=== PATIENT | male | born 1955 | race Caucasian/White ===

== ENCOUNTER → 2018-05-07 18:30 | Outpatient (REF) | payer MEDICARE, SELFPAY ==
[2018-05-07 19:14] LABS: Bilirubin Negative (Negative); Blood Large (Negative); Clarity Cloudy; Glucose Negative (Negative); Ketones Negative (Negative); Leukocyte Esterase Small (Negative); Nitrite Positive (Negative); Specific Gravity 1.025 (1.005-1.025); Urobilinogen 0.2 EU/dL (Up TO 0.2); pH 5.5 (5-8)
[2018-05-07 19:33] LABS: Bacteria Moderate HPF (Negative); Casts Negative LPF (Negative); Crystals Negative HPF (Negative); Epithelial Cells Negative HPF (Negative); Mucus Negative (Negative); Other Cells Negative (Negative); RBC >50 (0-2); WBC >50 HPF (0-5)
[2018-05-07 19:34] LABS: C & S Indicated? Yes
== END ==
LOC: NCHCN 18:30
PROVIDERS: PCP Family Medicine; Visit Provider Family Medicine
DX: N39.0 Urinary tract infection, site not specified (principal)
CPT/HCPCS: 87077; 81003; 81015; 87086; 87186

== ENCOUNTER 2018-07-10 10:01 | Emergency (ER) | payer MEDICARE, SELFPAY ==
[2018-07-10 10:02] VITALS: BP 165/79; PULSE 80; RESP 18; TEMP 36.6; O2SAT 95
--- NOTE | 2018-07-10 11:30 | W.ED.GENAD ---
Discharge Plan Disposition Patient Disposition: HOME Condition: Stable Discharge Details Chief Complaint: Cellulitis Clinical Impression: Abrasion of leg with infection, Venous stasis dermatitis, Contact dermatitis Primary Care Provider: Donya Tipton V ED Provider: Preeti Goyal Home Meds and New Rx's Prescriptions: Continue acetaminophen [Tylenol] 325 MG tablet 2 tab PO DAILY PRNRF: 0 aspirin 325 MG tablet 325 mg PO DAILY RF: 0 allopurinol [Zyloprim] 300 MG tablet 1 tab PO DAILY Qty: 90 RF: 4 metformin 500 MG tablet 500 mg PO BID Qty: 180 RF: 3 chlorthalidone 25 MG tablet 1 tab PO DAILY Qty: 90 RF: 4 quinapril 40 MG tablet 1 tab PO DAILY Qty: 90 RF: 4 Metoprolol Succinate 200 MG TAB.ER.24H 200 mg PO DAILY Qty: 90 RF: 3 cephalexin 500 mg capsule 500 mg PO QID Qty: 28 RF: 0 Discharge Instructions Instructions: Abrasion (ED), Dermatitis (ED) Additional Instructions: Apply bacitracin to the left wrist and left leg twice daily. Apply hydrocortisone cream to the left wrist twice daily. Continue the Keflex until finished. Follow-up with your primary care doctor in 1 week for reevaluation. Return to the emergency department with any worsening or new concerning symptoms such as fever, red streaking or any other worsening symptoms. Discharge Data Discharge Date/Time-TO BE ENTERED AT DEPARTURE: 07/10/18 11:54 Discharge Physician: Preeti Goyal Medical Decision Making 62-year-old male with a history of prediabetes, morbid obesity who presents for evaluation of left leg wound after scratched with bleeding vessel last night. Bleeding controlled after 1 hour. No bleeding noted at present. Patient has large lower extremities with chronic venous stasis noted. There is an open wound on the left anterior leg with several excoriated papules around area. The wound overall appears to be healing and I do not see any acute signs of cellulitis, abscess, induration or fluctuance. The left wrist appears consistent with likely a contact dermatitis due to wearing a watch. Patient was instructed to no longer wear this watch. Patient was instructed to finish his Keflex which he is taking for his left leg wound as this appears to be improving his left leg infection. Bacitracin/nonadherent dressing applied to L leg. He is instructed to hold pressure with any further bleeding and to avoid excessive scratching or touching with fingers d/t risk of bleeding or a secondary bacterial infection. Instructed to apply hydrocortisone and bacitracin to the left wrist dermatitis. He states he does not check his sugar regularly. He denies any other acute complaints and does not appear toxic. He is instructed to discuss with his primary care doctor for reevaluation of his prediabetes and whether he should check his sugar as diabetes can affect wound healing. He is instructed to return here immediately if worse with any signs of fever, red streaking or worsening infection. HPI General Mode of arrival: ambulatory. Date/Time Provider Initiated Documentation: 07/10/18 10:22. Limitations to Documentation: no limitations. Information obtained by: patient. HPI Narrative: Patient is a 62-year-old male who presents to the ED with a complaint of evaluation of left leg wound after a bleeding vessel last night which has since resolved as well as a rash of the left wrist. Patient states he has chronic skin changes to his bilateral lower extremities, but scraped his left leg on a tractor 1 month ago and has an open wound which appeared to be more painful and tender recently. He called his primary care doctor's office and they started on the Keflex which she has been taking since Wednesday. He states overall the symptoms are better but last night he scratched the area and there was a bleeding vessel for an hour last night that is since resolved. States he placed pressure on the wound and it stopped. Also states he has had a rash on his left wrist for the past month. Has worn a stainless steel watch there but removed it at the onset of the rash and then placed back on again a few days ago and the rash became worse. Denies any other new lotions, soaps, detergents or any other new meds or new contacts. He denies fever. He states he has been eating and drinking normally. Past medical history: Gout, hypertension, prediabetes Surgical history: Hip replacement, knee surgery, ankle surgery Social history: Smokes tobacco Medications: See list, Keflex Allergies: Sulfamerazine Related Data Home Medications Medication Instructions Recorded Confirmed acetaminophen [Tylenol] 2 tab PO DAILY PRN tab-cap 01/20/13 07/10/18 aspirin 325 mg PO DAILY tab-cap 01/25/13 07/10/18 allopurinol [Zyloprim] 1 tab PO DAILY #90 tab-cap 10/30/17 07/10/18 chlorthalidone 1 tab PO DAILY #90 tab-cap 01/25/18 07/10/18 metformin 500 mg PO BID #180 tab-cap 01/25/18 07/10/18 quinapril 1 tab PO DAILY #90 tab-cap 01/25/18 07/10/18 cephalexin 500 mg capsule 500 mg PO QID #28 cap 07/05/18 07/10/18 Previous Rx's Medication Instructions Recorded allopurinol [Zyloprim] 1 tab PO DAILY #90 tab-cap 10/30/17 chlorthalidone 1 tab PO DAILY #90 tab-cap 01/25/18 metformin 500 mg PO BID #180 tab-cap 01/25/18 quinapril 1 tab PO DAILY #90 tab-cap 01/25/18 cephalexin 500 mg capsule 500 mg PO QID #28 cap 07/05/18 Allergies Allergy/AdvReac Type Severity Reaction Status Date / Time sulfamerazine Allergy Mild SKIN RASH Unverified 07/10/18 10:09 General Stated Complaint: Cellulitis DENNISE: 3 Review of Systems Review of Systems All systems reviewed & are unremarkable except as noted in HPI and below PFSH Family History Mother Essential hypertension Heart disease Father Essential hypertension Heart disease Sister Essential hypertension Hyperlipidemia Brother Neoplasm Grandfather Heart disease Hyperlipidemia Grandfather Diabetes Alcohol abuse Heart disease Grandmother No problems noted. Grandmother Essential hypertension Depression Brother Neoplasm Son No problems noted. Daughter No problems noted. Daughter No problems noted. Daughter No problems noted. Social History Smoking/Tobacco Use Status: Current every day Surgical History Repair of inguinal hernia Replacement of total knee joint (~2006) Total replacement of hip (~2006) Exam Const General: cooperative and healthy appearing Orientation: alert and awake [facility] Head: normal to inspection Ears: hearing grossly normal bilaterally and external ears normal General nose exam: external nose normal Face and sinus: normal facial exam Eyes General: appearance normal, both eyes and all related structures Eyelids: eyelids normal EOM: EOM intact bilaterally Neck Neck: normal visual inspection Resp Effort & Inspection: normal respiratory effort and able to speak in complete sentences Cardio Rate: regular rate Skin Rashes: other (There is a circular ringlike rash around the left wrist which appears excoriated with scaling, erythema and multiple punctate open wounds. No discharge, bleeding, induration or fluctuance) Wounds: wounds noted (Approximately 3 x 3 cm open wound with healing granulation tissue noted to left anterior mid leg. There is chronic venous stasis and purplish discoloration noted to left leg but no signs of acute infection. There are multiple areas of papules and excoriation due to scratching.) Neuro General: alert and awake Cognition: normal cognition Speech: speech normal Gait: normal gait Motor: muscle tone normal throughout Sensory Exam: no sensory deficits noted Extrem General: normal to inspection, full ROM and normal capillary refill Other: Left DP/PT pulses intact. Left radial pulse intact. Cap refill less than 2 seconds. Psych Appearance: grossly normal Mental Status: mental status grossly normal Speech and Movement: speech and movement normal Affect: normal affect Thought Process: normal Course Vital Signs Temperature 97.9 F 07/10/18 10:02 Pulse 80 07/10/18 10:02 Respiratory Rate 18 07/10/18 10:02 Blood Pressure 165/79 H 07/10/18 10:02 Pulse Oximetry 95 07/10/18 10:02 Temperature 97.9 F 07/10/18 10:02 Temperature Source Skin 07/10/18 10:02 Pulse 80 07/10/18 10:02 Respiratory Rate 18 07/10/18 10:02 Respiratory Effort 07/10/18 10:11 Blood Pressure 165/79 H 07/10/18 10:02 Blood Pressure Position Sitting 07/10/18 10:02 Pulse Oximetry 95 07/10/18 10:02 Oxygen Delivery Method Room Air 07/10/18 10:02 Oxygen Flow Rate 0 07/10/18 10:02 Pain Level 3 07/10/18 10:02
[2018-07-10] MEDS: Bacitracin 1 PACKET 5 PACKET (11:41)
[2018-07-10 11:53] VITALS: BP 159/100; PULSE 78; TEMP 36.7; O2SAT 91
== END 2018-07-10 11:54 | disposition home or self-care (01) ==
LOC: ER 12:13
PROVIDERS: Emergency Provider Physician Assistant; PCP Family Medicine
DX: S80.812A Abrasion, left lower leg, initial encounter (principal); W26.8XXA Contact with other sharp object(s), not elsewhere classified, initial encounter; L03.116 Cellulitis of left lower limb; I87.2 Venous insufficiency (chronic) (peripheral); L23.0 Allergic contact dermatitis due to metals; E66.01 Morbid (severe) obesity due to excess calories; Z68.44 Body mass index [BMI] 60.0-69.9, adult; I10 Essential (primary) hypertension; R73.03 Prediabetes
CPT/HCPCS: 99283

== ENCOUNTER 2018-08-16 01:05 | Outpatient (CLI) | payer MEDICARE, SELFPAY ==
--- NOTE | 2018-08-16 09:04 | DI.US_ITS ---
SYMPTOMS/DIAGNOSIS: SWELLING AND BRUISING TO RIGHT LOWER EXTREMITY, PAIN IN RIGHT LEG, M79.604, OTHER SOFT TISSUE DISORDERS, M79.89 DUPLEX VENOUS ULTRASOUND, RIGHT LOWER EXTREMITY: Duplex evaluation of the deep venous system was performed according to the usual protocol. The deep veins are freely compressible throughout to the level of the popliteal veins. There is normal Doppler flow visible throughout and there is excellent flow augmentation with manual calf compression. CONCLUSION: No evidence of deep venous thrombosis.
== END 2018-08-16 01:25 ==
PROVIDERS: PCP Family Medicine; Visit Provider Nurse Practitioner Family
DX: M79.604 Pain in right leg (principal); R22.41 Localized swelling, mass and lump, right lower limb; M79.89 Other specified soft tissue disorders
CPT/HCPCS: 93971

== ENCOUNTER 2018-09-13 10:31 | Outpatient (CLI) | payer MEDICARE, SELFPAY ==
[2018-09-13 13:33] LABS: CREATININE 1.43 mg/dL (0.70-1.30); Estimated GFR 50.28 (mL/min/1.73m2); Potassium 4.3 mmol/L (3.5-5.1)
[2018-09-13 13:47] LABS: Hemoglobin A1C 6.6 % (4.5-6.2)
[2018-09-13 14:19] LABS: COMMENT (LAB VIEW ONLY) 111.06 mg/dL
== END 2018-09-13 10:51 ==
PROVIDERS: PCP Family Medicine; Visit Provider Family Medicine
DX: I10 Essential (primary) hypertension (principal); E11.9 Type 2 diabetes mellitus without complications; E66.01 Morbid (severe) obesity due to excess calories
CPT/HCPCS: 36415; 82043; 82565; 82570; 83036; 84132

== ENCOUNTER 2018-09-29 14:53 | Emergency (ER) | payer MEDICARE, SELFPAY ==
[2018-09-29 15:00] VITALS: BP 197/102; PULSE 80; RESP 24; TEMP 36.2; O2SAT 95
--- NOTE | 2018-09-29 15:37 | W.ED.GENAD ---
Discharge Plan Disposition Patient Disposition: HOME Discharge Details Chief Complaint: Orthopedic Clinical Impression: Acute pain of right hip Primary Care Provider: Gordon Roche ED Provider: Diallo Guaman Home Meds and New Rx's Prescriptions: Continued acetaminophen [Tylenol] 325 MG tablet 2 tab PO DAILY PRNRF: 0 aspirin 325 MG tablet 325 mg PO DAILY RF: 0 allopurinol [Zyloprim] 300 MG tablet 1 tab PO DAILY Qty: 90 RF: 4 metformin 500 MG tablet 500 mg PO BID Qty: 180 RF: 3 chlorthalidone 25 MG tablet 1 tab PO DAILY Qty: 90 RF: 4 quinapril 40 MG tablet 1 tab PO DAILY Qty: 90 RF: 4 Metoprolol Succinate 200 MG TAB.ER.24H 200 mg PO DAILY Qty: 90 RF: 3 Discharge Instructions Instructions: Oxycodone, Rapid Release (By mouth) Additional Instructions: Please contact your primary care physician to arrange follow-up. Please contact [facility] orthopedics or go to [facility] ED tomorrow for additional testing. Return to the ER for any worsening or new concerning symptoms. Medical Decision Making 16:00 -- 62-year-old male with multiple medical problems including remote right hip replacement, here with 10 days of worsening right hip pain, tender to palpation laterally, no overlying skin changes or signs of infection. I spoke with the director of testing unfortunately we do not have any imaging modalities that can accommodate the patient's weight. Cannot obtain plain film x-ray, MRI or CT imaging. 16:40 -- Spoke with patient and regarding transfer to [facility]. He is agreeable. I called [facility] transfer center to request ED to ED transfer. Awaiting return call. 17:22 -- [facility] transfer center called back and noted that [facility] cannot accept patient in transfer because of surge. I advised patient of this and offered to transfer to [facility] and patient refused. He would prefer to go home tonight and will travel to [facility] tomorrow for assessment. Patient to use walker (cannot tolerate crutches) and maintain minimal weight bearing right leg. I encouraged him to RTER for any worsening or new concerning symptoms. Oxycodone 5mg x3 for home use was provided after informed consent. HPI General Mode of arrival: ambulatory. Date/Time Provider Initiated Documentation: 09/29/18 14:57. Limitations to Documentation: no limitations. Information obtained by: patient. HPI Narrative: 75-year-old male with history of COPD, coronary artery disease, diabetes, status post remote bilateral hip replacement as well as bilateral knee replacement, here with right hip pain. Patient notes that he started to have hip pain about 10 days ago. He thought he pulled a muscle but does not recall an injury. Pain is progressed and worsened. Pain is described as a spasm and localized to his lateral right hip and radiates more medially, pain worse with ambulation and with rotation of his hip. Pain is severe. No associated redness or warmth. No fever. Related Data Home Medications Medication Instructions Recorded Confirmed acetaminophen [Tylenol] 2 tab PO DAILY PRN tab-cap 01/20/13 09/29/18 aspirin 325 mg PO DAILY tab-cap 01/25/13 09/29/18 allopurinol [Zyloprim] 1 tab PO DAILY #90 tab-cap 10/30/17 09/29/18 chlorthalidone 1 tab PO DAILY #90 tab-cap 01/25/18 09/29/18 metformin 500 mg PO BID #180 tab-cap 01/25/18 09/29/18 quinapril 1 tab PO DAILY #90 tab-cap 01/25/18 09/29/18 Previous Rx's Medication Instructions Recorded allopurinol [Zyloprim] 1 tab PO DAILY #90 tab-cap 10/30/17 chlorthalidone 1 tab PO DAILY #90 tab-cap 01/25/18 metformin 500 mg PO BID #180 tab-cap 01/25/18 quinapril 1 tab PO DAILY #90 tab-cap 01/25/18 Allergies Allergy/AdvReac Type Severity Reaction Status Date / Time sulfamerazine Allergy Mild SKIN RASH Unverified 09/29/18 15:10 General Stated Complaint: Orthopedic DENNISE: 3 Review of Systems Constitutional Denies fever(s) Musculoskeletal Reports as per HPI Integumentary/Breasts Reports as per HPI PFSH Medical History CAD (coronary artery disease) (Chronic) Diabetes (Chronic) Surgical History Repair of inguinal hernia Replacement of total knee joint (~2006) Total replacement of hip (~2006) Family History Mother Essential hypertension Heart disease Father Essential hypertension Heart disease Sister Essential hypertension Hyperlipidemia Brother Neoplasm Grandfather Heart disease Hyperlipidemia Grandfather Diabetes Alcohol abuse Heart disease Grandmother No problems noted. Grandmother Essential hypertension Depression Brother Neoplasm Son No problems noted. Daughter No problems noted. Daughter No problems noted. Daughter No problems noted. Social History Smoking/Tobacco Use Status: Current every day Exam Const General: cooperative and no acute distress Nutritional Appearance: obese morbidly obese Orientation: alert and awake [facility] Head: atraumatic Mouth: moist mucous membranes Eyes Conjunctivae: normal conjunctivae Sclera: normal sclerae Neck Neck: trachea midline Resp Auscultation: clear to auscultation bilaterally, no rales, no rhonchi and no wheezes Cardio Jugular venous pressure: no JVD Rate: regular rate and not tachycardic Rhythm: regular rhythm GI Palpation: soft, not firm, no guarding, no masses, not rigid and nontender Skin General skin exam: no rashes or lesions noted Neuro General: alert, awake, oriented x3 and tone normal Extrem General: no edema Right lower extremity: hip/thigh Details: tenderness Location: of the hip Location: laterally and abnormal ROM Details: pain with passive ROM during Details: to external rotation; no swelling, no deformity and no unusual warmth Psych Appearance: grossly normal Mental Status: mental status grossly normal Speech and Movement: speech and movement normal Course Vital Signs Temperature 36.2 C L 09/29/18 15:00 Pulse 80 09/29/18 15:00 Respiratory Rate 24 09/29/18 15:00 Blood Pressure 197/102 H 09/29/18 15:00 Pulse Oximetry 95 09/29/18 15:00 Temperature 36.2 C L 09/29/18 15:00 Temperature Source Temporal Artery Scan 09/29/18 15:00 Pulse 80 09/29/18 15:00 Respiratory Rate 24 09/29/18 15:00 Respiratory Effort 09/29/18 15:08 Blood Pressure 197/102 H 09/29/18 15:00 Blood Pressure Position Supine 09/29/18 15:00 Pulse Oximetry 95 09/29/18 15:00 Oxygen Delivery Method Room Air 09/29/18 15:00 Oxygen Flow Rate 0 09/29/18 15:00 Pain Level 3 09/29/18 15:36
[2018-09-29 17:30] VITALS: BP 179/85; PULSE 80; RESP 24
[2018-09-29] MEDS: oxyCODONE 5 MG TAB 15 MG PO (17:30)
== END 2018-09-29 17:34 | disposition home or self-care (01) ==
PROVIDERS: Emergency Provider Student in an Organized Health Care Education/Training Program; PCP Family Medicine
DX: R69 Illness, unspecified (principal)

== ENCOUNTER 2019-03-03 14:25 | Outpatient (CLI) | payer MEDICARE, SELFPAY ==
--- NOTE | 2019-03-03 15:20 | DI.US_ITS ---
SYMPTOMS/DIAGNOSIS: RIGHT LEG PAIN, M79.604, ? DVT RIGHT LOWER EXTREMITY ULTRASOUND: The deep veins of the right lower extremity show normal compression, augmentation and color flow. There is no evidence of a deep venous thrombus. The saphenofemoral junction is intact and unremarkable. There is a 5.2 x 1.8 x 3.3 cm fluid collection in the posterior thigh, most suggestive of a hematoma in this clinical setting. No internal blood flow is seen. IMPRESSION: 1. No evidence of a right lower extremity deep venous thrombus. 2. A 5 x 2 x 3 cm hematoma in the posterior right thigh.
== END 2019-03-03 14:45 ==
PROVIDERS: PCP Family Medicine; Visit Provider Family Medicine
DX: M79.604 Pain in right leg (principal); M79.81 Nontraumatic hematoma of soft tissue
CPT/HCPCS: 93971

== ENCOUNTER 2019-07-26 10:06 | Outpatient (CLI) | payer MEDICARE, SELFPAY ==
[2019-07-26 13:17] LABS: CREATININE 1.36 mg/dL (0.70-1.30); Calculated LDL 133 mg/dL; Cholesterol 222 mg/dL (50-200); HDL Cholesterol 40 mg/dL (40-60); Potassium 4.2 mmol/L (3.5-5.1); Triglyceride 249 mg/dL (30-150)
[2019-07-26 13:34] LABS: Hemoglobin A1C 6.8 % (4.5-6.2)
== END 2019-07-26 10:26 ==
PROVIDERS: PCP Family Medicine; Visit Provider Family Medicine
DX: I10 Essential (primary) hypertension (principal); E11.9 Type 2 diabetes mellitus without complications
CPT/HCPCS: 36415; 80061; 82565; 83036; 84132

== ENCOUNTER 2020-07-31 09:15 | Outpatient (CLI) | payer MEDICARE, SELFPAY ==
[2020-07-31 13:23] LABS: Hemoglobin A1C 8.2 % (<5.7)
[2020-07-31 13:38] LABS: CREATININE 1.21 mg/dL (0.70-1.30); Calculated LDL 105 mg/dL (<100); Cholesterol 190 mg/dL (<200); HDL Cholesterol 38 mg/dL (40-60); Triglyceride 239 mg/dL (<150)
== END 2020-07-31 09:35 ==
PROVIDERS: PCP Family Medicine; Visit Provider Family Medicine
DX: E78.5 Hyperlipidemia, unspecified (principal); R73.9 Hyperglycemia, unspecified; N28.9 Disorder of kidney and ureter, unspecified
CPT/HCPCS: 36415; 80061; 82565; 83036; 84132

== ENCOUNTER 2022-01-15 02:30 | Outpatient (CLI) | payer MEDICARE, SELFPAY ==
[2022-01-15 17:45] LABS: CREATININE 1.2 mg/dL (0.70-1.30); Calculated LDL 114 mg/dL (<100); Cholesterol 195 mg/dL (<200); HDL Cholesterol 43 mg/dL (40-60); Triglyceride 190 mg/dL (<150)
[2022-01-15 20:06] LABS: Microalb ug/mg Crea 888.3 ug/mg Cr
== END 2022-01-15 02:31 | disposition home or self-care (01) ==
LOC: LBO 02:30
PROVIDERS: PCP Family Medicine; Visit Provider Family Medicine
DX: I10 Essential (primary) hypertension (principal); E78.5 Hyperlipidemia, unspecified; E11.9 Type 2 diabetes mellitus without complications
CPT/HCPCS: 36415; 80061; 82043; 82565; 82570; 84132

== ENCOUNTER 2022-07-31 21:17 | Inpatient (IN) | payer MEDICARE, SELFPAY ==
[2022-07-31] VITALS (29 sets, daily range): BP systolic 121–150; BP diastolic 58–84; PULSE 77–93; RESP 12–37; TEMP 36.1–36.8; O2SAT 91–100
--- NOTE | 2022-07-31 21:00 | RT.EKG_ITS ---
APPROVED REPORT Exam: Resting ECG Reason for Exam: chest pain Patient Location: E HR:85 bpm ECG Measurements Heart Rate 85 AXIS CO 286 P 63 QRSd 117 QRS -81 QT 376 T 42 QTc 444 Conclusion Sinus rhythm...normal P axis, V-rate 60- 99 Ventricular premature complex...V complex w/ short R-R interval Prolonged CO interval...CO >220, V-rate 50- 90 Incomplete RBBB and LAFB...axis(240,-40), S>R II III aVF Physician: no stemi, stable, unchanged from prior ekg on 07/23/09
[2022-07-31 21:30] LABS: Abs Immature Grans 0.12 10^3/uL (0.0-0.06); Absolute Basophil Count 0.07 10^3/uL (0.0-0.2); Absolute Eosinophil Count 0.14 10^3/uL (0.0-0.7); Absolute Lymphocyte Count 2.32 10^3/uL (1.2-3.4); Absolute Monocyte Count 0.62 10^3/uL (0.1-0.8); Absolute Neutrophil Count 10.44 10^3/uL (1.2-6.7); Basophils % 0.5; HCT 48.9 % (40.0-50.0); HGB 16.1 g/dL (13.5-17.5); Immature Grans % 0.9; Lymphocytes % 16.9; MCH 29.3 pg (27.0-33.0); MCHC 32.9 % (32.0-36.0); MCV 89 fL (80-95); MPV 10.2 fL (8.0-11.0); Monocytes % 4.5; Neutrophils % 76.2; Platelet Count 197 10^3/uL (130-400); RBC 5.49 10^6/uL (4.36-5.78); RDW 14.2 % (11.8-14.1); RDW-SD 45.8 fL
--- NOTE | 2022-07-31 21:32 | ED.GENADUL_ITS ---
Discharge Plan Disposition Patient Disposition: [facility] INPATIENT Condition: Stable Discharge Details Clinical Impression: Non-ST elevation MN (NSTEMI), Chest pain Primary Care Provider: Gordon Roche ED Provider: Danyel Hoskins Home Meds and New Rx's Prescriptions: No Action allopurinol 300 mg tablet 300 mg PO DAILY Qty: 90 4RF chlorthalidone 25 mg tablet 25 mg PO DAILY Qty: 90 4RF quinapril 40 mg tablet 40 mg PO DAILY Qty: 90 4RF rosuvastatin 10 mg tablet 10 mg PO DAILY Qty: 90 3RF metformin 1,000 mg tablet 1,000 mg PO BID Qty: 180 3RF acetaminophen [Tylenol] 325 MG tablet 2 tab PO DAILY PRN amlodipine 5 mg tablet 5 mg PO DAILY Qty: 90 3RF metoprolol succinate 200 mg tablet extended release 24 hr 200 mg PO DAILY Qty: 90 3RF Medical Decision Making This is a 66-year-old male with a past medical history of a weight of 192 kg with a BMI of 61, kidney disease, hypertension,, diabetes, family history of cardiac disease, who presents today for chest pain. Patient states that he had dinner which was [employer], he had Ink[employer] on it which she has tolerated well before. Dinner was well and uneventful, and then about an hour ago at around 8:00 PM he developed sudden burning sensation in his chest, and transition to a stabbing achy pain. 911 was called, EMS arrived, the patient was given 2 nitroglycerin and he had complete resolution of his chest pain within 2 to 3 minutes. He has remained chest pain-free since then. Currently he denies any chest pain or shortness of breath. He denies any recent exertional dyspnea or chest pain over the last week. He denies history of heart attack. He was a former smoker. He denies tearing or ripping sensation. He denies numbness or tingling. No other complaints at this time. No other modifying factors. Physical exam is reassuring. Pulses are equal throughout. No signs of limb ischemia. Bedside ultrasound shows a notable fat pad from a cardiac bedside limited echo. There does not appear to be any gross wall motion abnormalities however the bedside echo was limited secondary to patient habitus. No evidence of tamponade clinically or on ultrasound. Differential is concerning for cardiac etiology. Esophageal spasm is of a potential with the resolution for the nitro, however cardiac etiology is more concerning. PE and dissection is unlikely given the presentation. We will monitor closely and reassess. The patient has already received 325 aspirin at home, as well as nitro and remains chest pain-free here. EKG shows no evidence of STEMI or acute changes compared to prior. 10:48 PM Patient's laboratory work-up is returned, mildly elevated white count at 13, electrolytes stable, renal function 1.4 creatinine, GFR 55, troponin is elevated at 161, proBNP is 93, lipase normal. Patient remained chest pain-free until just a few moments ago where it returned, Nitropaste was applied symptoms resolved. The troponin came back elevated he was given a 300 mg Plavix load, as well as heparinized. I did reach out to [facility], I spoke with Dr. Mart desai of cardiology, he agreed with the need for cardiac catheterization. No current beds are available. They are weightlifting till tomorrow afternoon but expect a bed at that time. Patient will be admitted at [facility] under Dr. Valle once a bed becomes available. In the meantime we will keep the patient here. I contacted the hospitalist Dr. Cano, she agrees with the assessment and plan. Patient will be admitted until transfer. I have extensively reviewed the treatment plan with the patient. I have addressed all patient concerns at this time. I have also discussed the plan with the admitting physician and they agree with the current assessment and plan and have agreed to assume responsibility for the patient. All parties demonstrate verbal understanding and agreement with our assessment and plan at this time. The documentation in this chart was dictated using [employer] dictation software. Please excuse any dictation errors. FINDINGS: Lungs: Very low lung volumes without definite airspace disease. Pleural spaces: No large pleural effusion. No pneumothorax. Heart/Mediastinum: No significant cardiomegaly for position and projection. Bones/joints: No acute fracture. IMPRESSION: Very low lung volumes without definite airspace disease. Thank you for allowing us to participate in the care of your patient. Dictated and Authenticated by: Danette Hollis MD 07/31/2022 10:41 PM Eastern Time ([place] & [place]) HPI General Date/Time Provider Initiated Documentation: 07/31/22 21:32 . HPI Narrative: This is a 66-year-old male with a past medical history of a weight of 192 kg with a BMI of 61, kidney disease, hypertension,, diabetes, family history of cardiac disease, who presents today for chest pain. Patient states that he had dinner which was [employer], he had [employer] seasoning on it which she has tolerated well before. Dinner was well and uneventful, and then about an hour ago at around 8:00 PM he developed sudden burning sensation in his chest, and transition to a stabbing achy pain. 911 was called, EMS arrived, the patient was given 2 nitroglycerin and he had complete resolution of his chest pain within 2 to 3 minutes. He has remained chest pain-free since then. Currently he denies any chest pain or shortness of breath. He denies any recent exertio nal dyspnea or chest pain over the last week. He denies history of heart attack. He was a former smoker. He denies tearing or ripping sensation. He denies numbness or tingling. No other complaints at this time. No other modifying factors. Related Data Home Medications Medication Instructions Recorded Confirmed acetaminophen 325 mg tablet 2 tab PO DAILY PRN 01/20/13 07/31/22 (Tylenol) metformin 1,000 mg tablet 1,000 mg PO BID #180 tabs 07/30/21 07/31/22 amlodipine 5 mg tablet 5 mg PO DAILY #90 tabs 10/20/21 07/31/22 allopurinol 300 mg tablet 300 mg PO DAILY #90 tab-caps 01/02/22 07/31/22 chlorthalidone 25 mg tablet 25 mg PO DAILY #90 tab-caps 01/02/22 07/31/22 quinapril 40 mg tablet 40 mg PO DAILY #90 tab-caps 01/02/22 07/31/22 rosuvastatin 10 mg tablet 10 mg PO DAILY #90 tabs 01/09/22 07/31/22 metoprolol succinate 200 mg 200 mg PO DAILY #90 tabs 06/18/22 07/31/22 tablet,extended release 24 hr Previous Rx's Medication Instructions Recorded metformin 1,000 mg tablet 1,000 mg PO BID #180 tabs 07/30/21 amlodipine 5 mg tablet 5 mg PO DAILY #90 tabs 10/20/21 allopurinol 300 mg tablet 300 mg PO DAILY #90 tab-caps 01/02/22 chlorthalidone 25 mg tablet 25 mg PO DAILY #90 tab-caps 01/02/22 quinapril 40 mg tablet 40 mg PO DAILY #90 tab-caps 01/02/22 rosuvastatin 10 mg tablet 10 mg PO DAILY #90 tabs 01/09/22 metoprolol succinate 200 mg 200 mg PO DAILY #90 tabs 06/18/22 tablet,extended release 24 hr Allergies Allergy/AdvReac Type Severity Reaction Status Date / Time sulfamerazine Allergy Mild SKIN RASH Verified 07/31/22 21:23 General Stated Complaint: Chest Pain DENNISE: 2 Review of Systems All systems reviewed & are unremarkable except as noted in HPI and below PFSH All Active Problems (Updated 07/31/22 @ 22:55 by Danyel Hoskins DO) Chest pain (Acute) Non-ST elevation MN (NSTEMI) (Acute) Left leg cellulitis (Acute) Leukocytosis (Acute) Status post hip replacement (Acute) Status post inguinal hernia repair (Acute) Status post total bilateral knee replacement (Acute) Cellulitis (Acute) large area of blood strong nidus for infection Pain (Acute) rt leg clinically c/w muscle tear and resultant hematoma Diabetes mellitus (Chronic) Moderately increased albuminuria (Acute) Hypertension (Chronic) Varicose veins of lower extremity (Acute) Venous insuffiency Smoker (Acute) chews Osteoarthritis (Acute) THR 11/03; knee pain; bilateral TKR's 2008 Obstructive sleep apnea syndrome (Acute) w/hypoxia and use of CPAP mask Morbid obesity (Acute 01/25/13) BMI 64 Kidney disease (Acute) renal insufficiency; 06/2009 w/renal consult at [facility] [place] with yearly F/U Heart failure (Acute) Gout (Acute) Essential hypertension (Acute 07/25/13) Abnormal ECG (Acute) W/PVC'S, LEFT ANTERIOR HEMIBLOCK, 1st DEGREE AV BLOCK Medical History CAD (coronary artery disease) Diabetes Surgical History Repair of inguinal hernia RIGHT Replacement of total knee joint (~2006) B/L S/P revision of total hip (~10/2018) 11/21/18 (R) [facility] [place] Total replacement of hip (~2006) RIGHT Family History Mother , 59 Essential hypertension Heart disease Depression Father Essential hypertension Heart disease Sister Essential hypertension Hyperlipidemia Brother , 50 Brain cancer Maternal Grandfather Heart disease Hyperlipidemia Paternal Grandfather Diabetes Alcohol abuse Heart disease Maternal Grandmother No problems noted. Paternal Grandmother Essential hypertension Depression Brother , 45 Brain cancer Son No problems noted. Daughter No problems noted. Daughter No problems noted. Daughter No problems noted. Sister , 9 months No problems noted. Social History Smoking/Tobacco Use Status: Current every day Tobacco Type: smokeless tobacco Tobacco: How many years used: 48 Smokeless tobacco user: chewing tobacco Quit status: not considering quitting Second Hand Exposure: Yes Smoking risk assessment performed?: Yes Alcohol Intake: current Alcohol Intake frequency: a few times a month Alcohol type: beer Drug use: Never Substance use type: does not use Caregiver/Support person: No Household members: spouse Housing: house Communication Needs: None Do you need help understanding health information?: Rarely Pets and animals: No Sexually active: Yes Do you think of yourself as: straight/heterosexual What is your relationship status?: How often do you talk on the phone with friends or family?: three or more times per week How often do you get together with friends or relatives?: twice per week How often do you attend oriental orthodox or moravian services?: 1-3 times per year Do you belong to any clubs or organized social groups?: yes Panel score (0-1 are the most socially isolated patients): 3 What type of physical activity do you participate in: decline to answer Duration: 15-30 minutes/day Frequency: 1-2 times per week Anita/Taoist: Lutheran Special anita needs: No Seatbelt use: never Helmet use: No Drive intox or ride w/intox intermodal truck driver: No Do you feel safe in your relationship?: Yes Exam Narrative Exam Narrative: 1.Const: Well-nourished, Well-developed, appearing stated age 2.Eyes: PERRL, no conjunctival injection, and symmetrical lids. 3.ENT: Atraumatic external nose and ears. Moist MM. Neck: Symmetric, trachea midline, No thyromegaly. 4.CVS: +S1/S2, No murmurs or gallops. Peripheral pulses 2+ and equal in all extremities. Brisk capillary refill in all extremities. 5.RESP: Unlabored respiratory effort. Clear to auscultation bilaterally. No wheezes rales or rhonchi 6.GI: Soft, Nontender/Nondistended, No hepatosplenomegaly. No guarding or rebound. 7.MSK: Normocephalic/Atraumatic, Extremities w/o deformity or ttp No cyanosis or clubbing, Normal movement of all extremities 8.Skin: Warm, Dry. No rashes or lesions. 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 Sensation grossly intact, no focal neurologic deficits. 10.Psych: (AAO) x3. Appropriate mood and affect Course Vital Signs Vital signs: Vital Signs Temperature 36.1 C L 07/31/22 21:17 Pulse 86 07/31/22 21:17 Respiratory Rate 16 07/31/22 21:17 Pulse Oximetry 94 07/31/22 21:17 Temperature 36.1 C L 07/31/22 21:17 Temperature Source Skin 07/31/22 21:17 Pulse 86 07/31/22 21:17 Respiratory Rate 16 07/31/22 21:17 Respiratory Effort 07/31/22 21:17 Blood Pressure Position Sitting 07/31/22 21:17 Pulse Oximetry 94 07/31/22 21:17 Oxygen Delivery Method Room Air 07/31/22 21:17 Oxygen Flow Rate 0 07/31/22 21:17 Pain Level 0 07/31/22 21:17 Lab/Test Results Lab/Test Results: Laboratory Tests Range/Units 07/31/22 21:25 WBC (4.4-10.8) 10^3/uL 13.70 H RBC (4.36-5.78) 10^6/uL 5.49 Hgb (13.5-17.5) g/dL 16.1 Hct (40.0-50.0) % 48.9 MCV (80-95) fL 89 MCH (27.0-33.0) pg 29.3 MCHC (32.0-36.0) % 32.9 RDW (11.8-14.1) % 14.2 H Plt Count (130-400) 10^3/uL 197 MPV (8.0-11.0) fL 10.2 Immature Gran % 0.9 Neutrophils % 76.2 Lymphocytes % 16.9 Monocytes % 4.5 Eosinophils % 1.0 Basophils % 0.5 Nucleated RBC % (0.0-0.3) % 0.0 Absolute Neutrophils (1.2-6.7) 10^3/uL 10.44 H Absolute Lymphocytes (1.2-3.4) 10^3/uL 2.32 Absolute Monocytes (0.1-0.8) 10^3/uL 0.62 Absolute Eosinophils (0.0-0.7) 10^3/uL 0.14 Absolute Basophils (0.0-0.2) 10^3/uL 0.07 Critical Care Time Critical Care Time Critical Care Time: Yes Total Critical Care Time: 45 Attestation: Upon my evaluation, this patient had a high probability of imminent or life- threatening deterioration, which required my direct attention, intervention, and personal management. I have personally provided 45 minutes of critical care time exclusive of time spent on separately billable procedures. Time includes review of laboratory data, radiology results, discussion with consultants, and monitoring for potential decompensation. Interventions were performed as documented. POCUS Exam (ED) Limited Cardiac Exam DATE OF EXAM: 07/31/22 TIME OF EXAM: 21:54 PROVIDER THAT PERFORMED THE STUDY: Danyel Hoskins IS THIS A REPEAT EXAM DURING THIS ENCOUNTER: no REASON FOR EXAM: Chest pain VISUALIZED STRUCTURES: Left atrium, Left ventricle, Right ventricle and Interventricular septum VIEW OBTAINED: Parasternal long-axis PERTINENT FINDINGS/IMPRESSION: Other (Large fat pad is noted. No tamponade. No gross evidence of wall motion abnormality.) Exam complete
[2022-07-31 21:44] LABS: INR 1.1 (0.9-1.1); PTT Activated 26.1 sec (21.0-27.5); Prothrombin Time 10.7 sec (9.3-11.0)
--- NOTE | 2022-07-31 21:45 | DI.RAD_ITS ---
Exam(s) XR PORTABLE CHEST AP EXAM: XR PORTABLE CHEST AP CLINICAL HISTORY: central chest pain. TECHNIQUE: 2D digital imaging was performed. COMPARISON: CR LEFT HIP COMPLETE from 06/17/2011 FINDINGS: Single AP portable view. Heart size is upper normal. The mediastinum is not widened. Lungs are clear. No infiltrates nor obvious pleural effusions. IMPRESSION: No acute pulmonary findings on this single AP portable view of the chest. DATA REPOSITORY: RADIATION DOSE DELIVERED:
[2022-07-31 21:54] LABS: ALT 29 U/L (16-63); AST 18 U/L (15-37); Albumin 3.5 g/dL (3.4-5.0); Alkaline Phosphatase 124 U/L (46-116); Anion Gap 7.5 mmol/L (3-11); BUN 22 mg/dL (7-18); Bilirubin, Total 0.5 mg/dL (0.2-1.0); CO2 30.5 mmol/L (21.0-32.0); CREATININE 1.4 mg/dL (0.70-1.30); Chloride 101 mmol/L (98-107); Estimated GFR 55.78 (mL/min/1.73m2); Glucose 269 mg/dL (74-106); Lipase 89 U/L (73-393); NT-proBNP 93 pg/mL (<300); Potassium 3.8 mmol/L (3.5-5.1); Sodium 139 mmol/L (136-145); Total Protein 7.6 g/dL (6.4-8.2)
[2022-07-31 21:57] LABS: Troponin I 161 ng/L (<or=60)
--- NOTE | 2022-07-31 22:42 | DI.VRAD_ITS ---
PROCEDURE INFORMATION: Exam: XR Chest Exam date and time: 07/31/2022 21:39 Age: 66 years old Clinical indication: Pain; Other: Central cp TECHNIQUE: Imaging protocol: Radiologic exam of the chest. Views: 1 view. COMPARISON: No relevant prior studies available. FINDINGS: Lungs: Very low lung volumes without definite airspace disease. Pleural spaces: No large pleural effusion. No pneumothorax. Heart/Mediastinum: No significant cardiomegaly for position and projection. Bones/joints: No acute fracture. IMPRESSION: Very low lung volumes without definite airspace disease. Dictated and Authenticated by: Danette Hollis MD. Ordering:ALEXANDRE Montaño MD
[2022-07-31] MEDS: Clopidogrel 300 MG TAB PO (22:49)
[2022-07-31 22:55] LABS: Lab Add On Test DONE
--- NOTE | 2022-07-31 22:56 | W.PM.HP.N ---
Date of service: 07/31/22 Time of Service: 22:56 Assessment and Plan Assessment and plan (1) Non-ST elevation [place] (NSTEMI): Status: Acute Assessment and plan: Admit to ICU in anticipation of need for a nitroglycerin drip. NPO. Trend serial troponins. Repeat EKG in am. Treat with aspirin, plavix, heparin gtt. Increase the dose of statin. Check A1C, fasting lipid panel. Echo unavailable at our facility over the weekend. Anticipate transfer to [facility] tomorrow for a cardiac cath. (2) Leukocytosis: Status: Acute Assessment and plan: CXR w/o an infiltrate. Check procalcitonin. (3) Diabetes mellitus: Status: Chronic Assessment and plan: Hold metformin in anticipation of IV contrast dye use. Cover with SSI. (4) Hypertension: Status: Chronic Assessment and plan: Continue home antihypertensive regimen (5) Obstructive sleep apnea syndrome: Status: Chronic Assessment and plan: On BIPAP at home. Continue here. (6) Tobacco abuse: Status: Acute Assessment and plan: The patient uses snuff. Encouraged to quit. Provide nicotine replacement. (7) DVT prophylaxis: Status: Acute Assessment and plan: On therapeutic heparin gtt (8) Discharge planning issues: Status: Acute Assessment and plan: Full code Admit to ICU. Anticipate transfer to [facility] tomorrow. Accepted in transfer by Dr Shahid. History of Present Illness History of Present Illness Chief Complaint: chest pain Narrative: Mr Purcell is a 66 year old male with PMHx of NIDDM2, HTN, Hyperlipidemia, ANJELICA, on BiPAP, obesity with BMI of 61 kg/m2, who presented to [facility] ED today c/o chest pain that started suddenly after dinner and is described as L-sided, burning/stingling, then stabbing and achy and heavy. The chest pain was accompanied by lightheadedness, shortness of breath, and nausea. The chest pain did not radiate. The patient took a full dose aspirin at home. Two nitroglycerin were given by EMS with resolution of symptoms. His ER workup revealed a positive troponin I (161) without ischemic changes on the EKG. He also has a leucocytosis of 13.70 without a clear source. Chest pain did recur in the ED. The patient's case was discussed with [facility] cardiology who accept the patient in transfer with bed availability expected tomorrow afternoon with plans for a cardiac cath tomorrow. The patient had already taken aspirin at home; he was loaded with plavix and started on heparin gtt. Hospitalist admission was requested while awaiting a bed at [facility]. He is full code. Review of Systems All systems reviewed & are unremarkable except as noted in HPI and below PFSH All Active Problems (Updated 08/01/22 @ 01:07 by Charity Cano MD) Tobacco abuse (Acute) Discharge planning issues (Acute) DVT prophylaxis (Acute) Chest pain (Acute) Non-ST elevation [place] (NSTEMI) (Acute) Left leg cellulitis (Acute) Leukocytosis (Acute) Status post hip replacement (Acute) Status post inguinal hernia repair (Acute) Status post total bilateral knee replacement (Acute) Cellulitis (Acute) large area of blood strong nidus for infection Pain (Acute) rt leg clinically c/w muscle tear and resultant hematoma Diabetes mellitus (Chronic) Moderately increased albuminuria (Acute) Hypertension (Chronic) Varicose veins of lower extremity (Acute) Venous insuffiency Smoker (Acute) chews Osteoarthritis (Acute) THR 11/03; knee pain; bilateral TKR's 2008 Obstructive sleep apnea syndrome (Chronic) w/hypoxia and use of CPAP mask Morbid obesity (Acute 01/25/13) BMI 64 Kidney disease (Acute) renal insufficiency; 06/2009 w/renal consult at [facility] with yearly F/U Heart failure (Acute) Gout (Acute) Essential hypertension (Acute 07/25/13) Abnormal ECG (Acute) W/PVC'S, LEFT ANTERIOR HEMIBLOCK, 1st DEGREE AV BLOCK Medical History CAD (coronary artery disease) Diabetes Surgical History Repair of inguinal hernia RIGHT Replacement of total knee joint (~2006) B/L S/P revision of total hip (~10/2018) 11/21/18 (R) [facility] Total replacement of hip (~2006) RIGHT Family History Mother , 59 Essential hypertension Heart disease Depression Father Essential hypertension Heart disease Sister Essential hypertension Hyperlipidemia Brother , 50 Brain cancer Maternal Grandfather Heart disease Hyperlipidemia Paternal Grandfather Diabetes Alcohol abuse Heart disease Maternal Grandmother No problems noted. Paternal Grandmother Essential hypertension Depression Brother , 45 Brain cancer Son No problems noted. Daughter No problems noted. Daughter No problems noted. Daughter No problems noted. Sister , 9 months No problems noted. Social History Smoking/Tobacco Use Status: Current every day Tobacco Type: smokeless tobacco Tobacco: How many years used: 48 Smokeless tobacco user: chewing tobacco Quit status: not considering quitting Second Hand Exposure: Yes Smoking risk assessment performed?: Yes Alcohol Intake: current Alcohol Intake frequency: a few times a month Alcohol type: beer Drug use: Never Substance use type: does not use Caregiver/Support person: No Household members: spouse Housing: house Communication Needs: None Do you need help understanding health information?: Rarely Pets and animals: No Sexually active: Yes Do you think of yourself as: straight/heterosexual What is your relationship status?: How often do you talk on the phone with friends or family?: three or more times per week How often do you get together with friends or relatives?: twice per week How often do you attend catholic or presybeterian services?: 1-3 times per year Do you belong to any clubs or organized social groups?: yes Panel score (0-1 are the most socially isolated patients): 3 What type of physical activity do you participate in: decline to answer Duration: 15-30 minutes/day Frequency: 1-2 times per week Anita/Gnosticist: Yarsani Special anita needs: No Seatbelt use: never Helmet use: No Drive intox or ride w/intox driver starting gate: No Do you feel safe in your relationship?: Yes Meds Allergies and Home Medications Allergies Allergy/AdvReac Type Severity Reaction Status Date / Time sulfamerazine Allergy Mild SKIN RASH Verified 07/31/22 21:23 Home Medications Medication Instructions Recorded Confirmed Type acetaminophen 325 mg tablet 2 tab PO DAILY PRN 01/20/13 07/31/22 History (Tylenol) metformin 1,000 mg tablet 1,000 mg PO BID #180 tabs 07/30/21 07/31/22 Rx amlodipine 5 mg tablet 5 mg PO DAILY #90 tabs 10/20/21 07/31/22 Rx allopurinol 300 mg tablet 300 mg PO DAILY #90 tab-caps 01/02/22 07/31/22 Rx chlorthalidone 25 mg tablet 25 mg PO DAILY #90 tab-caps 01/02/22 07/31/22 Rx quinapril 40 mg tablet 40 mg PO DAILY #90 tab-caps 01/02/22 07/31/22 Rx rosuvastatin 10 mg tablet 10 mg PO DAILY #90 tabs 01/09/22 07/31/22 Rx metoprolol succinate 200 mg 200 mg PO DAILY #90 tabs 06/18/22 07/31/22 Rx tablet,extended release 24 hr Exam Narrative Exam Narrative: General: Very pleasant obese male who is A&Ox3, sitting up comfortably at the edge of the bed, NAD, on room air, appears comfortable Neurological: A&Ox3, no focal deficits Psychiatric: Appropriate speech pattern/content Skin: Visible skin intact; chronic venous stasis changes LLE HEENT: Atraumatic, normocephalic, EOMI, MMM, clear oropharynx, large neck diameter, no submandibular or cervical lymphadenopathy, thyroid size difficult to assess, no obvious JVD Cardiovascular: RRR, no m/r/g Lungs: CTAB Gastrointestinal: soft, nontender, nondistended Genitourinary: deferred Extremities: 1+ BLE edema, trace pedal pulses, no c/c. No lesions on B feet. Results Imaging Additional studies: CXR: Very low lung volumes without definite airspace disease. EKG: SR, 1st degree heart block, incomplete RBBB and LAFB, no acute ischemia, Labs Result diagrams: 07/31/22 21:25 07/31/22 21:25 Labs: Laboratory Results - last 24 hr 07/31/22 07/31/22 07/31/22 21:25 21:25 21:25 WBC 13.70 H RBC 5.49 Hgb 16.1 Hct 48.9 MCV 89 MCH 29.3 MCHC 32.9 RDW 14.2 H Plt Count 197 MPV 10.2 Immature Gran % 0.9 Neutrophils % 76.2 Lymphocytes % 16.9 Monocytes % 4.5 Eosinophils % 1.0 Basophils % 0.5 Nucleated RBC % 0.0 Absolute Neutrophils 10.44 H Absolute Lymphocytes 2.32 Absolute Monocytes 0.62 Absolute Eosinophils 0.14 Absolute Basophils 0.07 PT 10.7 INR 1.1 APTT 26.1 Sodium 139 Potassium 3.8 Chloride 101 Carbon Dioxide 30.5 Anion Gap 7.5 BUN 22 H Creatinine 1.4 H Est GFR (CKD-EPI 2020) 55.78 Glucose 269 H Calcium 10.0 Total Bilirubin 0.5 AST 18 ALT 29 Alkaline Phosphatase 124 H Troponin I 161 H* NT-Pro-B Natriuret Pep 93 Total Protein 7.6 Albumin 3.5 Lipase 89 Add-On Test Request 07/31/22 21:25 WBC RBC Hgb Hct MCV MCH MCHC RDW Plt Count MPV Immature Gran % Neutrophils % Lymphocytes % Monocytes % Eosinophils % Basophils % Nucleated RBC % Absolute Neutrophils Absolute Lymphocytes Absolute Monocytes Absolute Eosinophils Absolute Basophils PT INR APTT Sodium Potassium Chloride Carbon Dioxide Anion Gap BUN Creatinine Est GFR (CKD-EPI 2020) Glucose Calcium Total Bilirubin AST ALT Alkaline Phosphatase Troponin I NT-Pro-B Natriuret Pep Total Protein Albumin Lipase Add-On Test Request DONE Last Vital Signs Temp 36.1 C L 07/31/22 21:17 Pulse 81 07/31/22 21:47 Resp 20 07/31/22 21:50 BP 135/68 07/31/22 21:47 Pulse Ox 94 07/31/22 21:50
[2022-07-31 23:00] LABS: Source Nasal/Nares
[2022-07-31 23:23] LABS: Procalcitonin 0.1 ng/mL
[2022-07-31 23:30] LABS: COVID-19 PCR Negative (Negative)
[2022-08-01] VITALS (93 sets, daily range): BP systolic 86–154; BP diastolic 45–103; PULSE 64–115; RESP 11–48; TEMP 36.7–36.8; O2SAT 90–98
[2022-08-01 01:03] LABS: Troponin I 2078 ng/L (<or=60)
--- NOTE | 2022-08-01 01:06 | RT.EKG_ITS ---
APPROVED REPORT Exam: Resting ECG Reason for Exam: chest pain Patient Location: I HR:74 bpm ECG Measurements Heart Rate 74 AXIS IA 301 P 66 QRSd 111 QRS -90 QT 395 T 28 QTc 439 Conclusion Age not entered, assumed to be 51 years old for purpose of ECG interpretation Sinus rhythm...normal P axis, V-rate 50- 99 Atrial premature complex...SV complex w/ short R-R interval Prolonged IA interval...IA >210, V-rate 50- 90 LAD, consider left anterior fascicular block...axis(240,-40), S>R II III aVF Low voltage, precordial leads...precordial leads <1.0mV Consider anterior infarct...Q >30mS in V2-V5
[2022-08-01] MEDS: Metoprolol 50 MG TAB PO ×3 (04:06→16:21)
[2022-08-01] MEDS: nitroGLYcerin 0.4 MG TAB SL ×2 (04:36→04:42)
--- NOTE | 2022-08-01 05:54 | NUR.NOTE ---
0410-pt rang to state he needed to void. got oob to commode and then back to bed upon which he said that he had chest pain. Dr. Cano called and notified and asked for a sl ntg ordered which was received. EKG done. #1 NTG given sl at 0436 with some relief. BP afterwards was 137/62. HR of 75. a second NTG was given at 0442 with relief. BP was 113/61 afterwards with a HR of 76. pt laid back down, put on his cpap and went back to sleep after medical laboratory specialist bell his blood
[2022-08-01 06:07] LABS: Abs Immature Grans 0.09 10^3/uL (0.0-0.06); Absolute Basophil Count 0.07 10^3/uL (0.0-0.2); Absolute Eosinophil Count 0.22 10^3/uL (0.0-0.7); Absolute Lymphocyte Count 2.77 10^3/uL (1.2-3.4); Absolute Monocyte Count 0.67 10^3/uL (0.1-0.8); Absolute Neutrophil Count 8.22 10^3/uL (1.2-6.7); Basophils % 0.6; Eosinophils % 1.8; HCT 46.8 % (40.0-50.0); HGB 15.4 g/dL (13.5-17.5); Immature Grans % 0.7; MCH 29.2 pg (27.0-33.0); MCHC 32.9 % (32.0-36.0); MCV 89 fL (80-95); MPV 10.5 fL (8.0-11.0); Monocytes % 5.6; Neutrophils % 68.3; Platelet Count 187 10^3/uL (130-400); RBC 5.27 10^6/uL (4.36-5.78); RDW 14.5 % (11.8-14.1); RDW-SD 46.8 fL; WBC 12.04 10^3/uL (4.4-10.8)
[2022-08-01 06:24] LABS: PTT Activated 28.3 sec (21.0-27.5)
[2022-08-01 06:36] LABS: Anion Gap 10.7 mmol/L (3-11); BUN 23 mg/dL (7-18); CO2 26.3 mmol/L (21.0-32.0); CREATININE 1.1 mg/dL (0.70-1.30); Calcium 9.2 mg/dL (8.5-10.1); Calculated LDL 55 mg/dL (<100); Chloride 102 mmol/L (98-107); Cholesterol 153 mg/dL (<200); Glucose 195 mg/dL (74-106); HDL Cholesterol 37 mg/dL (40-60); Magnesium 1.3 mg/dL (1.8-2.4); Potassium 3.5 mmol/L (3.5-5.1); Sodium 139 mmol/L (136-145); Triglyceride 309 mg/dL (<150)
[2022-08-01 06:41] LABS: Troponin I 4469 ng/L (<or=60)
[2022-08-01] MEDS: Insulin Aspart 300 UNITS/3 ML PEN SC (06:58)
--- NOTE | 2022-08-01 07:00 | RT.EKG_ITS ---
APPROVED REPORT Exam: Resting ECG Reason for Exam: NSTEMI Patient Location: I HR:72 bpm ECG Measurements Heart Rate 72 AXIS IL 253 P 156 QRSd 110 QRS -90 QT 390 T 11 QTc 427 Conclusion Sinus or ectopic atrial rhythm...P axis (-45,135) Atrial premature complex...SV complex w/ short R-R interval Prolonged IL interval...IL >220, V-rate 50- 90 Inferior infarct, old...Q >35mS, II III aVF Anterior infarct, old...Q >40mS, abnormal ST-T, V2-V5
[2022-08-01] MEDS: Allopurinol 300 MG TAB PO (08:13)
[2022-08-01] MEDS: amLODIPine 5 MG TAB PO (08:13)
[2022-08-01] MEDS: Clopidogrel 75 MG TAB PO (08:13)
[2022-08-01] MEDS: Aspirin E.C. 81 MG TABEC PO (08:13)
[2022-08-01] MEDS: Pantoprazole 40 MG VIAL IVP (08:13)
[2022-08-01] MEDS: Magnesium Oxide 400 MG TAB PO ×3 (08:43→16:21)
[2022-08-01] MEDS: MAGNESIUM SULFATE 4 GM/100 ML BAG IVPB (08:43)
--- NOTE | 2022-08-01 10:16 | INITIAL_ITS ---
- If Service Date Differs Date of service: 08/01/22 Time of Service: 10:17 Care Management Initial Assess REASON FOR HOSPITALIZATION:: NSTEMI PAST MEDICAL HISTORY/PAST SURGICAL HISTORY:: All Active Problems. Tobacco abuse (Acute). Discharge planning issues (Acute). DVT prophylaxis (Acute). Chest pain (Acute). Non-ST elevation [place] (NSTEMI) (Acute). Left leg cellulitis (Acute). Leukocytosis (Acute). Status post hip replacement (Acute). Status post inguinal hernia repair (Acute). Status post total bilateral knee replacement (Acute). Cellulitis (Acute). large area of blood strong nidus for infection. Pain (Acute). rt leg clinically c/w muscle tear and resultant hematoma. Diabetes mellitus (Chronic). Moderately increased albuminuria (Acute). Hypertension (Chronic). Varicose veins of lower extremity (Acute). Venous insuffiency. Smoker (Acute). chews. Osteoarthritis (Acute). THR 11/03; knee pain; bilateral TKR's 2008. Obstructive sleep apnea syndrome (Chronic). w/hypoxia and use of CPAP mask. Morbid obesity (Acute 01/25/13). BMI 64. Kidney disease (Acute). renal insufficiency; 06/2009 w/renal consult at [facility] with yearly F/U. Heart failure (Acute). Gout (Acute). Essential hypertension (Acute 07/25/13). Abnormal ECG (Acute). W/PVC'S, LEFT ANTERIOR HEMIBLOCK, 1st DEGREE AV BLOCK. Medical History. CAD (coronary artery disease). Diabetes. Surgical History. Repair of inguinal hernia. RIGHT. Replacement of total knee joint (~2006). B/L. S/P revision of total hip (~10/2018). 11/21/18 (R) [facility]. Total replacement of hip (~2006). RIGHT PREVIOUS FUNCTIONAL STATUS/SOCIAL/FAMILY SUPPORTS:: Abdi lives in [place] with his , Chloé. They have four children, all who live nearby and are very supportive. He is a proud grandfather of many, and enjoys watching them play local sports. He has worked as a castro and a selectman for many years. He is independent at baseline in the community. CURRENT FUNCTIONAL STATUS:: Sukhi was sitting up on the edge of the bed visiting with his , Chloé, when CM met with them. Their daughter, Bianca, was also visiting. Bianca asked about the time frame of his pending transfer to [facility]. Per RN, he has been accepted, but [facility] is waiting for a bed to become available prior to him transferring. Sukhi and his family expressed concern about waiting, and CM explained that he is being closely monitored in the ICU, and that [facility] will set the time for transfer, as they are the accepting facility. Sukhi stated that he is receiving good care, and is looking forward to transfer. He is currently NPO, reported being hungry, and asked for Jello. CM advised that diet orders must come from the MD, and he is NPO pending transfer and potential surgery. CM will continue to follow. ADVANCE DIRECTIVES:: [facility] on file, his Chloé is listed as agent. Has patient been provided with info about the portal/API?: Yes Did the patient sign up for the portal?: No CODE STATUS:: Full Code INSURANCE COVERAGE / FINANCIAL ISSUES:: MCR CURRENT HOME/COMMUNITY SERVICES/EQUIPMENT:: No known services or equipment. PRIMARY CARE PHYSICIAN:: Gordon Roche POTENTIAL DISCHARGE NEEDS:: transfer to [facility] PATIENT/FAMILY EDUCATION NEEDS:: Review discharge instructions and expectations for transfer with pt and family, discussion of self care needs including ask me three and goals of care. ANTICIPATED BARRIERS TO DISCHARGE:: None identified. TRANSPORTATION:: Anticipate acute transfer, will tranpsort via EMS PLAN:: Anticipate Abdi will transfer to [facility], per report, he has been accepted pending bed availability. He will transport via EMS, coordianted by RN Traffic Maintenance Officer. He will follow up with his PCP and discharge plan of care. CM will continue to support discharge planning considerations.
--- NOTE | 2022-08-01 10:35 | W.PM.PROGNOT ---
Date of Service Date of service: 08/01/22 Time of Service: 10:35 Assessment and Plan Assessment and plan (1) Non-ST elevation [place] (NSTEMI): Status: Acute Assessment and plan: Continue beta-blockers aspirin and DAPT along with rosuvastatin. If further chest pain we will start nitroglycerin drip. Anticipate transfer later today to [facility] to the service of Dr. Shahid Critical care time spent interviewing and examining the patient, reviewing studies, discussing case with patient's nurse and consulting physicians was 30 minutes (2) Diabetes mellitus: Status: Chronic Assessment and plan: Hold metformin in anticipation of IV contrast dye use. Cover with SSI. (3) Hypertension: Status: Chronic Assessment and plan: Continue home antihypertensive regimen (4) Obstructive sleep apnea syndrome: Status: Chronic Assessment and plan: On BIPAP at home. Continue here. (5) Tobacco abuse: Status: Acute Assessment and plan: The patient uses snuff. Encouraged to quit. Provide nicotine replacement. (6) Hypomagnesemia: Status: Acute Assessment and plan: Patient receiving parenteral and oral replacement. Monitor levels (7) DVT prophylaxis: Status: Acute Assessment and plan: On therapeutic heparin gtt (8) Discharge planning issues: Status: Acute Assessment and plan: Full code Admit to ICU. Anticipate transfer [place] [facility] [place]. Accepted in transfer by Dr Shahid. Subjective Subjective Interval history since last seen: 66-year-old male with history of hypertension, diabetes mellitus type 2 not on insulin, hyperlipidemia, ANJELICA treated with BiPAP, new onset resting chest pain associate with nausea diaphoresis shortness of breath. Patient was found to have an NSTEMI with a EKG showing new evidence of anterior and inferior infarct with loss of R waves in the anterior precordial leads as well as inferior Q waves that are new. There is no ST elevation. Troponin level Initially was 161 last night climbed to 2078 this morning is now 4469. Dr. Hoskins from [facility] emergency department spoke with [facility] television production clerk Dr. Cevallos who agreed that the patient needed cardiac catheterization. No beds were available last night but agreed to take the patient the following day which is today. Patient will be admitted under the service of Dr. Valle once a bed becomes available. During the night patient had some further chest pain which was alleviated with sublingual nitroglycerin. The night hospitalist ordered nitroglycerin paste although this was not applied. Presently patient denies any chest tightness or heaviness and does denies any dyspnea. Magnesium level is low this morning at 1.3 which is currently being corrected. proBNP was normal last night. Patient is currently on beta-blockers including Lopressor 50 mg every 6 hours along with aspirin and Plavix and is currently on a heparin drip. Patient's rosuvastatin was increased from 10 mg daily to 40 mg. Patient remains hemodynamically stable and is awaiting transfer. Explained to patient if he has any further chest pain or pressure tightness to let me know and we will start nitroglycerin drip and recheck an EKG. We will continue to cycle his troponins until they plateau. Exam Narrative Exam Narrative: Morbidly obese gentleman in no acute distress sitting up to bedside talking with his daughter. Neck veins are difficult to discern due to his obesity Lungs are clear to auscultation Heart is regular rate and rhythm no appreciable murmur rub or gallop Abdomen is obese soft and nontender Legs are large and edematous with venous varicosities Objective Last Vital Signs Temp 36.8 C 08/01/22 09:17 Pulse 79 08/01/22 09:17 Resp 19 08/01/22 09:17 BP 120/61 08/01/22 09:17 Pulse Ox 94 08/01/22 09:17 Laboratory Results - last 24 hr 07/31/22 07/31/22 07/31/22 21:25 21:25 21:25 WBC 13.70 H RBC 5.49 Hgb 16.1 Hct 48.9 MCV 89 MCH 29.3 MCHC 32.9 RDW 14.2 H Plt Count 197 MPV 10.2 Immature Gran % 0.9 Neutrophils % 76.2 Lymphocytes % 16.9 Monocytes % 4.5 Eosinophils % 1.0 Basophils % 0.5 Nucleated RBC % 0.0 Absolute Neutrophils 10.44 H Absolute Lymphocytes 2.32 Absolute Monocytes 0.62 Absolute Eosinophils 0.14 Absolute Basophils 0.07 PT 10.7 INR 1.1 APTT 26.1 Sodium 139 Potassium 3.8 Chloride 101 Carbon Dioxide 30.5 Anion Gap 7.5 BUN 22 H Creatinine 1.4 H Est GFR (CKD-EPI 2020) 55.78 Glucose 269 H Calcium 10.0 Magnesium Total Bilirubin 0.5 AST 18 ALT 29 Alkaline Phosphatase 124 H Troponin I 161 H* NT-Pro-B Natriuret Pep 93 Total Protein 7.6 Albumin 3.5 Triglycerides Total Cholesterol LDL Cholesterol, Calc HDL Cholesterol Lipase 89 Procalcitonin COVID-19 Source SARS-CoV-2 (PCR) Add-On Test Request 07/31/22 07/31/22 07/31/22 21:25 21:25 22:58 WBC RBC Hgb Hct MCV MCH MCHC RDW Plt Count MPV Immature Gran % Neutrophils % Lymphocytes % Monocytes % Eosinophils % Basophils % Nucleated RBC % Absolute Neutrophils Absolute Lymphocytes Absolute Monocytes Absolute Eosinophils Absolute Basophils PT INR APTT Sodium Potassium Chloride Carbon Dioxide Anion Gap BUN Creatinine Est GFR (CKD-EPI 2020) Glucose Calcium Magnesium Total Bilirubin AST ALT Alkaline Phosphatase Troponin I NT-Pro-B Natriuret Pep Total Protein Albumin Triglycerides Total Cholesterol LDL Cholesterol, Calc HDL Cholesterol Lipase Procalcitonin 0.1 COVID-19 Source Nasal/Nares SARS-CoV-2 (PCR) Negative Add-On Test Request DONE 07/31/22 08/01/22 08/01/22 23:20 00:30 00:30 WBC RBC Hgb Hct MCV MCH MCHC RDW Plt Count MPV Immature Gran % Neutrophils % Lymphocytes % Monocytes % Eosinophils % Basophils % Nucleated RBC % Absolute Neutrophils Absolute Lymphocytes Absolute Monocytes Absolute Eosinophils Absolute Basophils PT INR APTT Sodium Potassium Chloride Carbon Dioxide Anion Gap BUN Creatinine Est GFR (CKD-EPI 2020) Glucose Calcium Magnesium Total Bilirubin AST ALT Alkaline Phosphatase Troponin I 2078 H* Cancelled NT-Pro-B Natriuret Pep Total Protein Albumin Triglycerides Total Cholesterol LDL Cholesterol, Calc HDL Cholesterol Lipase Procalcitonin COVID-19 Source Cancelled SARS-CoV-2 (PCR) Cancelled Add-On Test Request 08/01/22 08/01/22 08/01/22 05:18 05:18 05:18 WBC 12.04 H RBC 5.27 Hgb 15.4 Hct 46.8 MCV 89 MCH 29.2 MCHC 32.9 RDW 14.5 H Plt Count 187 MPV 10.5 Immature Gran % 0.7 Neutrophils % 68.3 Lymphocytes % 23.0 Monocytes % 5.6 Eosinophils % 1.8 Basophils % 0.6 Nucleated RBC % 0.0 Absolute Neutrophils 8.22 H Absolute Lymphocytes 2.77 Absolute Monocytes 0.67 Absolute Eosinophils 0.22 Absolute Basophils 0.07 PT INR APTT 28.3 H Sodium 139 Potassium 3.5 Chloride 102 Carbon Dioxide 26.3 Anion Gap 10.7 BUN 23 H Creatinine 1.1 Est GFR (CKD-EPI 2020) 74.50 Glucose 195 H Calcium 9.2 Magnesium 1.3 L Total Bilirubin AST ALT Alkaline Phosphatase Troponin I 4469 H* NT-Pro-B Natriuret Pep Total Protein Albumin Triglycerides 309 H Total Cholesterol 153 LDL Cholesterol, Calc 55 HDL Cholesterol 37 L Lipase Procalcitonin COVID-19 Source SARS-CoV-2 (PCR) Add-On Test Request
[2022-08-01 13:48] LABS: PTT Activated 28.2 sec (21.0-27.5)
--- NOTE | 2022-08-01 15:56 | W.PM.DS.N ---
Date of service: 08/01/22 Time of Service: 15:56 DS: Diagnosis Discharge Diagnosis (1) Non-ST elevation [place] (NSTEMI): Status: Acute (2) Diabetes mellitus: Status: Chronic (3) Hypertension: Status: Chronic (4) Obstructive sleep apnea syndrome: Status: Chronic (5) Tobacco abuse: Status: Acute (6) Hypomagnesemia: Status: Acute (7) DVT prophylaxis: Status: Acute (8) Discharge planning issues: Status: Acute Discharge Plan Disposition Patient Disposition: [facility] Condition: Stable Discharge Details Reason For Visit: NSTEMI Admit Date/Time: 07/31/22 22:48 Admit Provider: Charity Cano Attending Provider: Charity Cano Primary Care Provider: Gordon Roche Hospital Course Hospital Course: 66-year-old male with history of NIDDM 2, HTN, HLD, ANJELICA on BiPAP who presented with acute onset of chest pain after dinner with left-sided chest burning and heaviness associate with shortness of breath and lightheadedness and nausea. EMS gave him 2 nitroglycerin tablets that resolved his symptoms. Work-up in the emergency department revealed a positive troponin I of 161 without ischemic EKG changes. He was also noted to have a leukocytosis of 13,700 without any fever or source. Patient was given a loading dose of Plavix 300 mg and started on heparin drip and was admitted to the intensive care unit and had serial cardiac isoenzymes checked. Troponin jennifer to as high as 40,000 and are still climbing. Patient had 1 episode of chest pain overnight since admitted to the ICU that resolved with nitroglycerin tablet. As of this dictation patient has been pain-free. CMP this morning shows a low magnesium of 1.3 which he was given a bolus of magnesium sulfate 4 g over 4 hours. He was also started on oral magnesium supplementation. Chest x-ray last night showed no acute pulmonary findings. ECG on admission demonstrated sinus rhythm with occasional PVC with left anterior fascicular block. When compared to previous ECG from 07/23/2009 no significant change. Follow-up EKG the next morning again shows sinus rhythm with APCs however his ECG shows inferior Q waves in limb lead III and aVF as well as loss of R waves across the precordial leads. [facility] was called from our emergency department and after discussion by our ED provider with the fraud analyst on-call and patient was excepted for transfer at [facility] pending bed availability. On the afternoon of 08/01/2022 [facility] transfer center called to say that they had a bed available and the patient would not be at transferred to the service of Dr. Geri Shahid. Patient is transferred in hemodynamically stable condition. Home Meds and New Rx's Prescriptions: No Action allopurinol 300 mg tablet 300 mg PO DAILY Qty: 90 4RF chlorthalidone 25 mg tablet 25 mg PO DAILY Qty: 90 4RF quinapril 40 mg tablet 40 mg PO DAILY Qty: 90 4RF rosuvastatin 10 mg tablet 10 mg PO DAILY Qty: 90 3RF metformin 1,000 mg tablet 1,000 mg PO BID Qty: 180 3RF acetaminophen [Tylenol] 325 MG tablet 2 tab PO DAILY PRN amlodipine 5 mg tablet 5 mg PO DAILY Qty: 90 3RF metoprolol succinate 200 mg tablet extended release 24 hr 200 mg PO DAILY Qty: 90 3RF Discharge Instructions Instructions: Heart Attack (DC), Heart Healthy Diet (DC) Activity:: BEDREST Diet:: npo Discharge Orders Discharge Orders: Discharge Order (Routine); Ordered 08/01/22 Ordered By: Francisco Hudson DS: Summary Time Spent with Patient providing and/or coordinating discharge services: Less than 30 minutes Status at Discharge Functional status at discharge: independent ambulation Overall status at discharge: patient is not back to baseline Mental Status: mental status grossly normal Speech and Movement: speech and movement normal Mood: congruent mood Affect: normal affect Exam Narrative Exam Narrative: Morbidly obese gentleman in no acute distress sitting up to bedside talking with his daughter. Neck veins are difficult to discern due to his obesity Lungs are clear to auscultation Heart is regular rate and rhythm no appreciable murmur rub or gallop Abdomen is obese soft and nontender Legs are large and edematous with venous varicosities Psych Mental Status: mental status grossly normal Speech and Movement: speech and movement normal Mood: congruent mood Affect: normal affect DS: Data Vitals/I&O Vitals and I&O: Vital Signs Temperature 36.8 C 08/01/22 12:31 Temperature Source Tympanic 08/01/22 12:31 Pulse 79 08/01/22 12:31 Pulse 73 08/01/22 09:16 Respiratory Rate 19 08/01/22 12:31 Respiratory Effort 08/01/22 12:31 Respiratory Depth Normal 08/01/22 12:31 Respiratory Pattern Normal 08/01/22 12:31 Blood Pressure 120/61 08/01/22 09:17 Blood Pressure Mean 80 08/01/22 09:17 Blood Pressure Position Sitting 08/01/22 12:31 Pulse Oximetry 94 08/01/22 12:31 Oxygen Delivery Method Room Air 07/31/22 23:52 Oxygen Flow Rate 0 07/31/22 23:52 Fraction of Inspired Oxygen (FIO2) 21 08/01/22 08:48 Pain Level 0 08/01/22 12:31 Intake & Output 07/31/22 08/01/22 08/01/22 23:59 11:59 23:59 Intake Total 158.667 / 158.667 Output Total 950 / 950 Balance -791.333 / -791.333 Weight 188.4 kg 188.4 kg Intake: IV 83.667 / 83.667 Oral 75 / 75 Output: Urine 950 / 950 Other: Urine Color Yellow Urine Appearance Clear Urine Odor None Comment sits on commode to void sits on commode to void Voiding Methods Bedside Commode Data Completed and Pending Labs on day of discharge: Labs from last 24 hours 08/01/22 08/01/22 08/01/22 13:27 10:48 05:18 WBC RBC Hgb Hct MCV MCH MCHC RDW Plt Count MPV Immature Gran % Neutrophils % Lymphocytes % Monocytes % Eosinophils % Basophils % Nucleated RBC % Absolute Neutrophils Absolute Lymphocytes Absolute Monocytes Absolute Eosinophils Absolute Basophils PT INR APTT 28.2 H 28.3 H Sodium Potassium Chloride Carbon Dioxide Anion Gap BUN Creatinine Est GFR (CKD-EPI 2020) Glucose Calcium Magnesium Total Bilirubin AST ALT [place]kaline [place] [address] H* NT-Pro-B Natriuret Pep Total Protein Albumin Triglycerides Total Cholesterol LDL Cholesterol, Calc HDL Cholesterol Lipase Procalcitonin COVID-19 Source SARS-CoV-2 (PCR) Add-On Test Request 08/01/22 08/01/22 08/01/22 05:18 05:18 00:30 WBC 12.04 H RBC 5.27 Hgb 15.4 Hct 46.8 MCV 89 MCH 29.2 MCHC 32.9 RDW 14.5 H Plt Count 187 MPV 10.5 Immature Gran % 0.7 Neutrophils % 68.3 Lymphocytes % 23.0 Monocytes % 5.6 Eosinophils % 1.8 Basophils % 0.6 Nucleated RBC % 0.0 Absolute Neutrophils 8.22 H Absolute Lymphocytes 2.77 Absolute Monocytes 0.67 Absolute Eosinophils 0.22 Absolute Basophils 0.07 PT INR APTT Sodium 139 Potassium 3.5 Chloride 102 Carbon Dioxide 26.3 Anion Gap 10.7 BUN 23 H Creatinine 1.1 Est GFR (CKD-EPI 2020) 74.50 Glucose 195 H Calcium 9.2 Magnesium 1.3 L Total Bilirubin AST ALT Alkaline Phosphatase Troponin I 4469 H* Cancelled NT-Pro-B Natriuret Pep Total Protein Albumin Triglycerides 309 H Total Cholesterol 153 LDL Cholesterol, Calc 55 HDL Cholesterol 37 L Lipase Procalcitonin COVID-19 Source SARS-CoV-2 (PCR) Add-On Test Request 08/01/22 07/31/22 07/31/22 00:30 23:20 22:58 WBC RBC Hgb Hct MCV MCH MCHC RDW Plt Count MPV Immature Gran % Neutrophils % Lymphocytes % Monocytes % Eosinophils % Basophils % Nucleated RBC % Absolute Neutrophils Absolute Lymphocytes Absolute Monocytes Absolute Eosinophils Absolute Basophils PT INR APTT Sodium Potassium Chloride Carbon Dioxide Anion Gap BUN Creatinine Est GFR (CKD-EPI 2020) Glucose Calcium Magnesium Total Bilirubin AST ALT Alkaline Phosphatase Troponin I 2078 H* NT-Pro-B Natriuret Pep Total Protein Albumin Triglycerides Total Cholesterol LDL Cholesterol, Calc HDL Cholesterol Lipase Procalcitonin COVID-19 Source Cancelled Nasal/Nares SARS-CoV-2 (PCR) Cancelled Negative Add-On Test Request 07/31/22 07/31/22 07/31/22 21:25 21:25 21:25 WBC RBC Hgb Hct MCV MCH MCHC RDW Plt Count MPV Immature Gran % Neutrophils % Lymphocytes % Monocytes % Eosinophils % Basophils % Nucleated RBC % Absolute Neutrophils Absolute Lymphocytes Absolute Monocytes Absolute Eosinophils Absolute Basophils PT 10.7 INR 1.1 APTT 26.1 Sodium Potassium Chloride Carbon Dioxide Anion Gap BUN Creatinine Est GFR (CKD-EPI 2020) Glucose Calcium Magnesium Total Bilirubin AST ALT Alkaline Phosphatase Troponin I NT-Pro-B Natriuret Pep Total Protein Albumin Triglycerides Total Cholesterol LDL Cholesterol, Calc HDL Cholesterol Lipase Procalcitonin 0.1 COVID-19 Source SARS-CoV-2 (PCR) Add-On Test Request DONE 07/31/22 07/31/22 21:25 21:25 WBC 13.70 H RBC 5.49 Hgb 16.1 Hct 48.9 MCV 89 MCH 29.3 MCHC 32.9 RDW 14.2 H Plt Count 197 MPV 10.2 Immature Gran % 0.9 Neutrophils % 76.2 Lymphocytes % 16.9 Monocytes % 4.5 Eosinophils % 1.0 Basophils % 0.5 Nucleated RBC % 0.0 Absolute Neutrophils 10.44 H Absolute Lymphocytes 2.32 Absolute Monocytes 0.62 Absolute Eosinophils 0.14 Absolute Basophils 0.07 PT INR APTT Sodium 139 Potassium 3.8 Chloride 101 Carbon Dioxide 30.5 Anion Gap 7.5 BUN 22 H Creatinine 1.4 H Est GFR (CKD-EPI 2020) 55.78 Glucose 269 H Calcium 10.0 Magnesium Total Bilirubin 0.5 AST 18 ALT 29 Alkaline Phosphatase 124 H Troponin I 161 H* NT-Pro-B Natriuret Pep 93 Total Protein 7.6 Albumin 3.5 Triglycerides Total Cholesterol LDL Cholesterol, Calc HDL Cholesterol Lipase 89 Procalcitonin COVID-19 Source SARS-CoV-2 (PCR) Add-On Test Request [facility] All Active Problems Hypomagnesemia (Acute) Tobacco abuse (Acute) Discharge planning issues (Acute) DVT prophylaxis (Acute) Chest pain (Acute) Non-ST elevation NJ (NSTEMI) (Acute) Left leg cellulitis (Acute) Leukocytosis (Acute) Status post hip replacement (Acute) Status post inguinal hernia repair (Acute) Status post total bilateral knee replacement (Acute) Cellulitis (Acute) large area of blood strong nidus for infection Pain (Acute) rt leg clinically c/w muscle tear and resultant hematoma Diabetes mellitus (Chronic) Moderately increased albuminuria (Acute) Hypertension (Chronic) Varicose veins of lower extremity (Acute) Venous insuffiency Smoker (Acute) chews Osteoarthritis (Acute) THR 11/03; knee pain; bilateral TKR's 2008 Obstructive sleep apnea syndrome (Chronic) w/hypoxia and use of CPAP mask Morbid obesity (Acute 01/25/13) BMI 64 Kidney disease (Acute) renal insufficiency; 06/2009 w/renal consult at [facility] with yearly F/U Heart failure (Acute) Gout (Acute) Essential hypertension (Acute 07/25/13) Abnormal ECG (Acute) W/PVC'S, LEFT ANTERIOR HEMIBLOCK, 1st DEGREE AV BLOCK Medical History CAD (coronary artery disease) Diabetes Surgical History Repair of inguinal hernia RIGHT Replacement of total knee joint (~2006) B/L S/P revision of total hip (~10/2018) 11/21/18 (R) [facility] Total replacement of hip (~2006) RIGHT Family History Mother , 59 Essential hypertension Heart disease Depression Father Essential hypertension Heart disease Sister Essential hypertension Hyperlipidemia Brother , 50 Brain cancer Maternal Grandfather Heart disease Hyperlipidemia Paternal Grandfather Diabetes Alcohol abuse Heart disease Maternal Grandmother No problems noted. Paternal Grandmother Essential hypertension Depression Brother , 45 Brain cancer Son No problems noted. Daughter No problems noted. Daughter No problems noted. Daughter No problems noted. Sister , 9 months No problems noted. Social History Smoking/Tobacco Use Status: Current every day Tobacco Type: smokeless tobacco Tobacco: How many years used: 48 Smokeless tobacco user: chewing tobacco Quit status: not considering quitting Second Hand Exposure: Yes Smoking risk assessment performed?: Yes Alcohol Intake: current Alcohol Intake frequency: a few times a month Alcohol type: beer Drug use: Never Substance use type: does not use Caregiver/Support person: No Household members: spouse Housing: house Communication Needs: None Do you need help understanding health information?: Rarely Pets and animals: No Sexually active: Yes Do you think of yourself as: straight/heterosexual What is your relationship status?: How often do you talk on the phone with friends or family?: three or more times per week How often do you get together with friends or relatives?: twice per week How often do you attend restorationist or presybeterian services?: 1-3 times per year Do you belong to any clubs or organized social groups?: yes Panel score (0-1 are the most socially isolated patients): 3 What type of physical activity do you participate in: decline to answer Duration: 15-30 minutes/day Frequency: 1-2 times per week Anita/Scientologist: Lutheran Special anita needs: No Seatbelt use: never Helmet use: No Drive intox or ride w/intox 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
== END 2022-08-01 18:30 | disposition short-term general hospital (02) | DRG 281 ==
LOC: ER 23:21 → ICU 23:46
PROVIDERS: Internal Medicine; Admitting Provider Internal Medicine; Emergency Provider Student in an Organized Health Care Education/Training Program; PCP Family Medicine; Visit Provider Internal Medicine
DX: I21.4 Non-ST elevation (NSTEMI) myocardial infarction (principal); Z68.43 Body mass index [BMI] 50.0-59.9, adult; D72.829 Elevated white blood cell count, unspecified; I10 Essential (primary) hypertension; E11.9 Type 2 diabetes mellitus without complications; E83.42 Hypomagnesemia; F17.210 Nicotine dependence, cigarettes, uncomplicated; G47.33 Obstructive sleep apnea (adult) (pediatric); E66.01 Morbid (severe) obesity due to excess calories; Z79.84 Long term (current) use of oral hypoglycemic drugs
CPT/HCPCS: 36415; 36416; 80048; 80053; 80061; 82962; 83690; 84145; 87635; 93005; 93308; 96365; 96376; 99291; 71045; 83735; 83880; 84484; 85025; 85610; 85730; 93010; 99223; 99238; J3475

== ENCOUNTER → 2022-09-24 11:01 | Outpatient (BNVA) | payer MEDICARE, SELFPAY | PROVIDERS: PCP Family Medicine; Referring Provider Family Medicine; Visit Provider Internal Medicine Cardiovascular Disease | DX: I25.10 Atherosclerotic heart disease of native coronary artery without angina pectoris (principal); I25.2 Old myocardial infarction; I10 Essential (primary) hypertension; E66.01 Morbid (severe) obesity due to excess calories; E11.9 Type 2 diabetes mellitus without complications; Z95.5 Presence of coronary angioplasty implant and graft | CPT/HCPCS: 93005; 99203; 99214 ==

== ENCOUNTER 2022-09-24 11:16 | Outpatient (CLI) | payer MEDICARE, SELFPAY ==
--- NOTE | 2022-09-24 11:15 | RT.EKG_ITS ---
APPROVED REPORT Exam: Resting ECG Reason for Exam: f/u N STEMI Patient Location: O HR:96 bpm ECG Measurements Heart Rate 96 AXIS GA 239 P 209 QRSd 116 QRS -62 QT 383 T 40 QTc 484 Conclusion Sinus or ectopic atrial rhythm...P axis (-45,135) Prolonged GA interval...GA >215, V-rate 91-120 Left anterior fascicular block...axis(240,-40), init forces inf Anterior infarct Low voltage
== END 2022-09-24 11:17 | disposition home or self-care (01) ==
LOC: DI.CARD 11:17
PROVIDERS: PCP Family Medicine; Visit Provider Internal Medicine Cardiovascular Disease
DX: I25.10 Atherosclerotic heart disease of native coronary artery without angina pectoris (principal); I25.2 Old myocardial infarction; I49.1 Atrial premature depolarization; I44.1 Atrioventricular block, second degree
CPT/HCPCS: 93010

== ENCOUNTER 2022-11-12 08:14 | Outpatient (CLI) | payer MEDICARE, SELFPAY ==
[2022-11-12 12:48] LABS: Anion Gap 10.5 mmol/L (3-11); BUN 22 mg/dL (7-18); CO2 26.5 mmol/L (21.0-32.0); CREATININE 1.1 mg/dL (0.70-1.30); Calcium 9.9 mg/dL (8.5-10.1); Chloride 102 mmol/L (98-107); Glucose 207 mg/dL (74-106); Potassium 4.1 mmol/L (3.5-5.1); Sodium 139 mmol/L (136-145)
== END 2022-11-12 08:15 | disposition home or self-care (01) ==
LOC: LOS 08:14
PROVIDERS: PCP Family Medicine; Referring Provider Family Medicine; Visit Provider Family Medicine
DX: E11.9 Type 2 diabetes mellitus without complications (principal)
CPT/HCPCS: 36415; 80048

== ENCOUNTER → 2023-01-21 10:32 | Outpatient (BNVA) | payer MEDICARE, SELFPAY | PROVIDERS: PCP Family Medicine; Referring Provider Family Medicine; Visit Provider Internal Medicine Cardiovascular Disease | DX: I10 Essential (primary) hypertension (principal); I25.10 Atherosclerotic heart disease of native coronary artery without angina pectoris | CPT/HCPCS: 99214 ==

== ENCOUNTER → 2023-07-22 10:47 | Outpatient (BNVA) | payer MEDICARE, SELFPAY | PROVIDERS: PCP Family Medicine; Visit Provider Internal Medicine Cardiovascular Disease | DX: I25.2 Old myocardial infarction (principal); Z95.5 Presence of coronary angioplasty implant and graft; I25.10 Atherosclerotic heart disease of native coronary artery without angina pectoris; I10 Essential (primary) hypertension | CPT/HCPCS: 99213 ==

== ENCOUNTER 2023-08-31 16:32 | Outpatient (REF) | payer MEDICARE, SELFPAY ==
[2023-08-31 19:28] LABS: COMMENT (LAB VIEW ONLY) 102.17 mg/dL
[2023-08-31 19:29] LABS: Microalb ug/mg Crea 271.5 ug/mg Cr
== END 2023-08-31 16:33 | disposition home or self-care (01) ==
LOC: NCHCN 16:32
PROVIDERS: PCP Family Medicine; Visit Provider Family Medicine
DX: E11.9 Type 2 diabetes mellitus without complications (principal)
CPT/HCPCS: 82043; 82570

== ENCOUNTER → 2024-02-02 04:21 | Outpatient (CLI) | payer MEDICARE, SELFPAY ==
--- NOTE | 2024-02-02 10:05 | DI.MRI_ITS ---
Exam(s) MR LUMBAR SPINE WO EXAM: MR LUMBAR SPINE WO CLINICAL HISTORY: low back pain;no help w/ PT,m54.50. TECHNIQUE: Multiplanar multisequence MRI of the Lumbar spine was performed. COMPARISON: None FINDINGS: Exam is limited by patient body habitus. Bones: The last intervertebral disc space is designated the L5/S1 level for the numbering purpose of this ex amination. The vertebral body heights are well maintained. Alignment: Unremarkable. The marrow signal characteristics are unremarkable. Cord: The conus tip ends at the T12 level. It is of normal size and signal intensity. T12-L1: No focal disc herniation is present. No central spinal canal stenosis.No neural foraminal st enosis. L1-2: No focal disc herniation is present. No central spinal canal stenosis.No neural foraminal sten osis. L2-3:Mild lateral disc bulging.. No focal disc herniation is present. No central spinal canal sten osis.Mild bilateral neural foraminal narrowing. L3-4: Mild disc bulging.No focal disc herniation is present. No central spinal canal stenosis.Mild bilateral neural foraminal narrowing. L4-5:Mild disc bulging. Small superimposed central disc protrusion. Facet degenerative changes. Mi ld ligamentous hypertrophy. Mild central canal stenosis.Moderate bilateral neural foraminal narrowin g. L5-S1: Mild loss of disc height. Small endplate osteophytes. Right paracentral disc protrusion whic h appears to cause nerve root impingement. Facet degenerative changes. No central spinal canal fred nosis.Severe bilateral foraminal narrowing. The visualized SI joints and sacrum are unremarkable. Soft tissues: The paraspinal soft tissues are unremarkable. IMPRESSION: Right paracentral disc protrusion at L5-S1 appears to cause nerve root impingement. There is severe bilateral neural foraminal narrowing. Mild central canal stenosis and moderate bilateral neural foraminal narrowing at L4-5 secondary to a combination of degenerative changes. DATA REPOSITORY:
== END ==
PROVIDERS: PCP Family Medicine; Visit Provider Family Medicine
DX: M51.37 Other intervertebral disc degeneration, lumbosacral region (principal)
CPT/HCPCS: 72148

== ENCOUNTER 2024-03-01 08:52 | Outpatient (CLI) | payer MEDICARE, SELFPAY ==
[2024-03-01 09:20] VITALS: BP 140/66; PULSE 75; RESP 20; TEMP 36.7; O2SAT 95
--- NOTE | 2024-03-01 10:00 | PDOC.PAIN ---
Date of service: 03/01/24 Time of Service: 10:00 Pain Managment Procedure Note Procedure Note Procedure Note: PROCEDURE NOTE LUMBAR EPIDURAL STEROID INJECTION Date of Service: March 01, 2024 Patient:Abdi Farris? Provider: Aden Borjas DO, MPH Abdi Purcell has been referred to the [facility] for a lumbar epidural steroid injection. Pre-operative diagnosis: Lumbosacral Radiculopathy Post-operative diagnosis: Same Pre-Procedure Pain: VAS= 5/10 Comments: I previously evaluated him in the office. His symptoms are the same. He is a diabetic and for this reason I cut the steroids in half. His last A1c was 7.2 on 09/10/23. Abdi was interviewed and the medical record was reviewed.? There were no medical, pharmacologic, radiographic or other structural contraindications to attempting fluoroscopically guided Lumbar epidural steroid injection.? Risks, potential side effects, indications, and potential benefits of the procedure were reviewed with Abdi.? Questions and concerns were addressed.? After it was clear that Abdi was fully informed about the procedure, the printed consent form was signed by the patient and myself.? Abdi was placed in the prone position on the fluoroscopy table and automated blood pressure cuff and pulse oximeter applied. The skin entry point for entering/approaching the epidural space for the lumbar epidural steroid injection was marked. Following thorough chlorhexadine preparation of the skin and draping and 1% lidocaine infiltration of the skin entry point and subcutaneous tissues, an 18 gauge 5 Touhy needle was placed and advanced under fluoroscopic guidance and with loss of resistance technique into the L5-S1 epidural space. Needle tip placement and depth were aided and confirmed by fluoroscopy. There was no paresthesia or return of blood or CSF through the needle. 1 mls of Omnipaque 240 was injected with clear epidural spread confirmed with fluoroscopy. 40 mg of Depo-Medrol was? injected. This was followed by 1 ml of preservative-free normal saline to flush the steroid out of the needle. There was no unusual discomfort expressed by Abdi. The needle was withdrawn without difficulty. (49 mls of Omnipaque was wasted) Abdi was observed and was without hemodynamic, neurologic, or allergic reactions.? Fluoroscopic images were digitally archived. Abdi's vital signs were stable throughout the procedure and were as recorded in nursing records. Follow up plans and appointments were discussed with Abdi. Post procedure instruction was given as documented in nursing records and having met discharge criteria Abdi was discharged from the [facility]. COMMENTS: No apparent complications. Post-procedure pain: VAS= 0/10. Abdi to contact [facility] as needed. If at least 50% improvement in pain and/or function for at least 3 months is achieved, this procedure can be repeated. I personally performed this entire procedure. ADEN BORJAS DO, MPH ABPMR-subspecialty board certification in Pain Medicine [facility]
[2024-03-01] MEDS: Omnipaque 240 MG/ML 50 ML BTL IJ (10:01)
[2024-03-01] MEDS: methylPREDNISolone ACETATE 80 MG/ML VIAL IJ (10:01)
[2024-03-01 10:03] VITALS: BP 151/78; PULSE 88; RESP 22; O2SAT 92
[2024-03-01] MEDS: Epidural Tray 1 EACH MC (10:06)
--- NOTE | 2024-03-01 11:00 | DI.RAD_ITS ---
Exam(s) XR PAIN CLINIC LUMBAR SP 2V EXAM: XR PAIN CLINIC LUMBAR SP 2V CLINICAL HISTORY: Dx: Lumbar Radiculopathy TECHNIQUE: 2D and realtime digital imaging was performed. CONTRAST MATERIAL: Refer to procedure report. COMPARISON: No exams were available for comparison FINDINGS: Fluoroscopy was provided for Dr. Borjas during the performance of a lumbar epidural steroid injection. Please refer to the procedure report for complete details. Ka,r=18.5 mGy IMPRESSION: RADIATION DOSE DELIVERED: 0.0 0.0 0
== END 2024-03-01 08:53 | disposition home or self-care (01) ==
LOC: PC 08:53
PROVIDERS: PCP Family Medicine; Visit Provider Preventive Medicine Occupational Medicine
DX: M54.50 Low back pain, unspecified (principal); M54.17 Radiculopathy, lumbosacral region
CPT/HCPCS: 62323; 72100; J1010; Q9967

== ENCOUNTER 2024-07-27 08:10 | Outpatient (CLI) | payer MEDICARE, SELFPAY ==
--- NOTE | 2024-07-27 08:00 | RT.EKG_ITS ---
APPROVED REPORT Exam: Resting ECG Reason for Exam: CAD Patient Location: O HR:79 bpm ECG Measurements Heart Rate [address] 245 P -68 QRSd 111 QRS -77 QT 352 T 54 QTc 404 Conclusion Sinus rhythm...P axis (-45,135) Prolonged CT interval...CT >220, V-rate 50- 90 Abnormal R-wave progression, late transition...QRS area<0 in V5/V6
== END 2024-07-27 08:11 | disposition home or self-care (01) ==
LOC: DI.CARD 08:10
PROVIDERS: PCP Family Medicine; Visit Provider Internal Medicine Cardiovascular Disease
DX: I21.4 Non-ST elevation (NSTEMI) myocardial infarction (principal); I25.10 Atherosclerotic heart disease of native coronary artery without angina pectoris
CPT/HCPCS: 93010

== ENCOUNTER → 2024-07-27 09:31 | Outpatient (BNVA) | payer MEDICARE, SELFPAY | PROVIDERS: PCP Family Medicine; Visit Provider Internal Medicine Cardiovascular Disease | DX: I25.2 Old myocardial infarction (principal); I25.10 Atherosclerotic heart disease of native coronary artery without angina pectoris | CPT/HCPCS: 93005; 99213 ==

== ENCOUNTER 2025-02-01 08:28 | Outpatient (CLI) | payer MEDICARE, SELFPAY ==
--- NOTE | 2025-02-01 06:00 | DI.RAD_ITS ---
Exam(s) XR PAIN CLINIC LUMBAR SP 2V EXAM: XR PAIN CLINIC LUMBAR SP 2V CLINICAL HISTORY: DX: Lumbar Radiculopathy. TECHNIQUE: Fluoroscopy was provided for the referring physician for guidance with performing pain cl inic injection procedure. COMPARISON: No exams were available for comparison FINDINGS: Please see procedure note for details. Fluoro time: 19 seconds RADIATION DOSE DELIVERED: Ka,r=18.8 mGy
[2025-02-01 09:00] VITALS: BP 109/64; PULSE 78; RESP 20; TEMP 36.7; O2SAT 96
[2025-02-01 09:44] VITALS: PULSE 42; O2SAT 91
[2025-02-01 09:50] VITALS: PULSE 82; RESP 25; O2SAT 95
[2025-02-01 09:56] VITALS: BP 124/61; PULSE 74
[2025-02-01] MEDS: Omnipaque 240 MG/ML 50 ML BTL IJ (09:58)
[2025-02-01] MEDS: Epidural Tray 1 EACH MC (09:58)
[2025-02-01] MEDS: methylPREDNISolone ACETATE 80 MG/ML VIAL IJ (09:59)
--- NOTE | 2025-02-01 13:56 | PDOC.PAIN_ITS ---
Date of service: 02/01/25 Time of Service: 10:00 Pain Managment Procedure Note Procedure Note Procedure Note: PROCEDURE NOTE LUMBAR EPIDURAL STEROID INJECTION Date of Service: February 01, 2025 Patient:Abdi Farris? Provider: Aden Borjas DO, MPH Abdi Purcell has been referred to the [facility] for a lumbar epidural steroid injection. Pre-operative diagnosis: Lumbosacral Radiculopathy ICD-10 M54.16 Post-operative diagnosis: Same Pre-Procedure Pain: VAS= 8 /10 Comments: I previously evaluated him in the office. No change in symptoms. Abdi was interviewed and the medical record was reviewed.? There were no medical, pharmacologic, radiographic or other structural contraindications to attempting fluoroscopically guided Lumbar epidural steroid injection.? Risks, potential side effects, indications, and potential benefits of the procedure were reviewed with Abdi.? Questions and concerns were addressed.? After it was clear that Abdi was fully informed about the procedure, the printed consent form was signed by the patient and myself.? Abdi was placed in the prone position on the fluoroscopy table and automated blood pressure cuff and pulse oximeter applied. The skin entry point for entering/approaching the epidural space for the lumbar epidural steroid injection was marked. Following thorough chlorhexadine preparation of the skin and draping and 1% lidocaine infiltration of the skin entry point and subcutaneous tissues, an 18 gauge Touhy needle was placed and advanced under fluoroscopic guidance and with loss of resistance technique into the L5-S1 epidural space. Needle tip placement and depth were aided and confirmed by fluoroscopy. There was no paresthesia or return of blood or CSF through the needle. 1 mls of Omnipaque 240 was injected with clear epidural spread confirmed with fluoroscopy. 80 mg of Depo-Medrol was? injected. This was followed by 1 ml of preservative-free normal saline to flush the steroid out of the needle. There was no unusual discomfort expressed by Abdi. The needle was withdrawn without difficulty. (49 mls of Omnipaque was wasted) Abdi was observed and was without hemodynamic, neurologic, or allergic reactions.? Fluoroscopic images were digitally archived. Abdi's vital signs were stable throughout the procedure and were as recorded in nursing records. Follow up plans and appointments were discussed with Abdi. Post procedure instruction was given as documented in nursing records and having met discharge criteria Abdi was discharged from the [facility] Management Center. COMMENTS: No apparent complications. Post-procedure pain: VAS= 2/10. Abdi to contact [facility] as needed. If at least 50% improvement in pain and/or function for at least 3 months is achieved, this procedure can be repeated. I personally performed this entire procedure. ADEN BORJAS DO, MPH ABPMR-subspecialty board certification in Pain Medicine [facility] Coding Conscious Sedation used for procedure: No CPT Codes: Inj Spine L/S w/Imaging - 75018 ([id number] ~G) Additional Codes: Date of Service (54680) Date of service: 02/01/25
== END 2025-02-01 08:29 | disposition home or self-care (01) ==
LOC: PC 08:29
PROVIDERS: PCP Family Medicine; Visit Provider Preventive Medicine Occupational Medicine
DX: M54.16 Radiculopathy, lumbar region (principal); M54.50 Low back pain, unspecified
CPT/HCPCS: 62323; 72100; J1010; Q9967

== ENCOUNTER 2025-04-03 09:07 | Outpatient (CLI) | payer MEDICARE, SELFPAY ==
[2025-04-03 12:36] LABS: Abs Immature Grans 0.14 10^3/uL (0.0-0.06); HCT 42.9 % (40.0-50.0); HGB 13.8 g/dL (13.5-17.5); Immature Grans % 1.4 %; MCH 30.1 pg (27.0-33.0); MCHC 32.2 % (32.0-36.0); MCV 94 fL (80-95); MPV 10.7 fL (8.0-11.0); Platelet Count 177 10^3/uL (130-400); RBC 4.58 10^6/uL (4.36-5.78); RDW 15.6 % (11.8-14.1); RDW-SD 53.4 fL; WBC 10.29 10^3/uL (4.4-10.8)
[2025-04-03 12:57] LABS: ALT 34 U/L (16-63); AST 23 U/L (15-37); Albumin 3.4 g/dL (3.4-5.0); Alkaline Phosphatase 124 U/L (46-116); Anion Gap 13.3 mmol/L (3-11); BUN 42 mg/dL (7-18); Bilirubin, Total 0.4 mg/dL (0.2-1.0); CO2 18.7 mmol/L (21.0-32.0); Calcium 9.9 mg/dL (8.5-10.1); Chloride 106 mmol/L (98-107); Estimated GFR 59.84 (mL/min/1.73m2); Glucose 126 mg/dL (74-106); Potassium 5.1 mmol/L (3.5-5.1); Sodium 138 mmol/L (136-145); Total Protein 7.2 g/dL (6.4-8.2)
== END 2025-04-03 09:08 | disposition home or self-care (01) ==
LOC: LOS 09:08
PROVIDERS: PCP Family Medicine; Visit Provider Family Medicine
DX: R10.9 Unspecified abdominal pain (principal); D64.9 Anemia, unspecified
CPT/HCPCS: 36415; 80053; 85025

== ENCOUNTER → 2025-07-26 09:47 | Outpatient (BNVA) | payer MEDICARE, SELFPAY | PROVIDERS: PCP Family Medicine; Visit Provider Internal Medicine Cardiovascular Disease | DX: I25.10 Atherosclerotic heart disease of native coronary artery without angina pectoris (principal); Z95.5 Presence of coronary angioplasty implant and graft; E66.9 Obesity, unspecified; Z23 Encounter for immunization | CPT/HCPCS: 99213; 90653; G0008 ==

== ENCOUNTER 2025-08-02 10:31 | Outpatient (CLI) | payer MEDICARE, SELFPAY ==
--- NOTE | 2025-08-02 06:00 | DI.RAD_ITS ---
Exam(s) XR PAIN CLINIC LUMBAR SP 2V EXAM: XR PAIN CLINIC LUMBAR SP 2V CLINICAL HISTORY: DX: Lumbar Radiculopathy TECHNIQUE: 2D and realtime digital imaging was performed. CONTRAST MATERIAL: Refer to procedure report. COMPARISON: No exams were available for comparison FINDINGS: Fluoroscopy was provided for Dr. Borjas during the performance of a lumbar epidural steroid injection. Please refer to the procedure report for complete details. Ka,r=15.5 mGy IMPRESSION: RADIATION DOSE DELIVERED: 0.0 0.0 0
[2025-08-02 10:59] VITALS: BP 142/88; PULSE 68; RESP 16; TEMP 36.8; O2SAT 98
[2025-08-02 11:36] VITALS: PULSE 80; RESP 24; O2SAT 94
[2025-08-02 11:37] VITALS: BP 111/52; PULSE 78; PULSE 79; RESP 29; O2SAT 95
[2025-08-02 11:40] VITALS: PULSE 79; RESP 12; O2SAT 96
[2025-08-02 11:48] VITALS: BP 127/58; PULSE 70
[2025-08-02] MEDS: Epidural Tray 1 EACH MC (11:52)
[2025-08-02] MEDS: Omnipaque 240 MG/ML 50 ML BTL IJ (11:52)
[2025-08-02] MEDS: methylPREDNISolone ACETATE 80 MG/ML VIAL IJ (11:52)
--- NOTE | 2025-08-02 12:18 | PDOC.PAIN_ITS ---
Date of service: 08/02/25 Time of Service: 12:18 Pain Managment Procedure Note Procedure Note Procedure Note: PROCEDURE NOTE LUMBAR EPIDURAL STEROID INJECTION Date of Service: August 02, 2025 Patient:Abdi Farris? Provider: Aden Borjas DO, MPH Abdi Purcell has been referred to the [facility] for a lumbar epidural steroid injection. Pre-operative diagnosis: Lumbosacral Radiculopathy ICD-10 M54.16 Post-operative diagnosis: Same Pre-Procedure Pain: VAS= 6 /10 Comments: He had about 6 months of >50% pain relief with his last LESI. Most of this pain has returned. His blood sugars has been in the normal range over the past 24 hours. Abdi was interviewed and the medical record was reviewed.? There were no medical, pharmacologic, radiographic or other structural contraindications to attempting fluoroscopically guided Lumbar epidural steroid injection.? Risks, potential side effects, indications, and potential benefits of the procedure were reviewed with Abdi.? Questions and concerns were addressed.? After it was clear that Abdi was fully informed about the procedure, the printed consent form was signed by the patient and myself.? Abdi was placed in the prone position on the fluoroscopy table and automated blood pressure cuff and pulse oximeter applied. The skin entry point for entering/approaching the epidural space for the lumbar epidural steroid injection was marked. Following thorough chlorhexadine preparation of the skin and draping and 1% lidocaine infiltration of the skin entry point and subcutaneous tissues, an 18 gauge 5 Touhy needle was placed and advanced under fluoroscopic guidance and with loss of resistance technique into the L5-S1 epidural space. Needle tip placement and depth were aided and confirmed by fluoroscopy. There was no paresthesia or return of blood or CSF through the needle. 1 mls of Omnipaque 240 was injected with clear epidural spread confirmed with fluoroscopy. 80 mg of Depo-Medrol was? injected. This was followed by 1 ml of preservative-free normal saline to flush the steroid out of the needle. There was no unusual discomfort expressed by Abdi. The needle was withdrawn without difficulty. (49 mls of Omnipaque was wasted) Abdi was observed and was without hemodynamic, neurologic, or allergic reactions.? Fluoroscopic images were digitally archived. Abdi's vital signs were stable throughout the procedure and were as recorded in nursing records. Follow up plans and appointments were discussed with Abdi. Post procedure in struction was given as documented in nursing records and having met discharge criteria Abdi was discharged from the [facility]. COMMENTS: No apparent complications. Post-procedure pain: VAS= 2/10. Abdi to contact [facility] as needed. If at least 50% improvement in pain and/or function for at least 3 months is achieved, this procedure can be repeated. I personally performed this entire procedure. ADEN BORJAS DO, MPH ABPMR-subspecialty board certification in Pain Medicine [facility] Coding Conscious Sedation used for procedure: No CPT Codes: Inj Spine L/S w/Imaging - 33122 ([id number] ~G) Additional Codes: Date of Service () Diagnoses: Lumbar radiculopathy
== END 2025-08-02 10:32 | disposition home or self-care (01) ==
LOC: PC 10:32
PROVIDERS: PCP Family Medicine; Visit Provider Preventive Medicine Occupational Medicine
DX: M54.16 Radiculopathy, lumbar region (principal)
CPT/HCPCS: 62323; 72100; J1010; Q9967

== ENCOUNTER 2025-08-10 00:19 | Outpatient (CLI) | payer MEDICARE, SELFPAY ==
[2025-08-10 14:41] LABS: Vitamin B12 282 pg/mL (211-911)
== END 2025-08-10 00:20 | disposition home or self-care (01) ==
LOC: LOS 00:19
PROVIDERS: PCP Family Medicine; Visit Provider Family Medicine
DX: D64.9 Anemia, unspecified (principal)
CPT/HCPCS: 36415; 82607

== ENCOUNTER 2025-09-06 09:35 | Outpatient (CLI) | payer MEDICARE, SELFPAY ==
[2025-09-06 09:50] VITALS: BP 130/69; PULSE 72; RESP 20; TEMP 37; O2SAT 97
[2025-09-06 10:23] VITALS: PULSE 80; O2SAT 90
[2025-09-06 10:30] VITALS: PULSE 73; O2SAT 92
[2025-09-06] MEDS: Nerve Block Tray 1 EACH MC (10:42)
[2025-09-06] MEDS: Bupivacaine 0.5% Pres-Free 10 ML VIAL IJ (10:43)
[2025-09-06] MEDS: methylPREDNISolone ACETATE 40 MG/ML VIAL IJ (10:43)
--- NOTE | 2025-09-06 10:52 | PDOC.PAIN ---
Date of service: 09/06/25 Time of Service: 10:00 US Guided Injections Type of Ultrasound Guided Injection: Right Trochanteric Bursa Injection Pre-Procedural Evaluation Tenderness to palpation over the right trochanteric bursa Referral Patient has been referred to the [facility] for Right lateral hip pain Pre-Procedural Pain Score Pre-procedural pain score: 2/10 Reason for Exam Right lateral hip pain Patient Interview Patient was interviewed and medical record reviewed: Yes There were contraindications noted to performing an US guided procedure. Risks,expected side effects, potential benefits were reviewed. The patient consent form was signed and witnessed. Standard time out procedure was performed. Patient Safety No significant skin issues at the proposed site of the injection Procedure Description No sedation given for procedure Patient was placed in the left lateral recumbent position and the following Pulse Ox applied. Pre-Procedure ultrasound scanning performed using a Linear 9 MHz probe Site Preparation Chloroprep Local Anesthesia Skin and subcutaneous tissues anesthetized with: 2 mL of Lidocaine 2%. A 21 G 3.5 Pajunk ultrasound needle was placed under live US guidance using an in-plane approach to the target area. After visualization of the needle tip at the target area Depo-Medrol 40mg per cc and Lidocaine 2% were used. Total of Injectate/Medication Note: 2 cc of Depomedrol and 5 cc of 2% Lidocaine Negative aspiration for blood. [place] were removed without difficulty. Ultrasound images were captured and stored. Patient Mental Status Patient was alert and awake during procedure Vital Signs Vital signs were stable throughout the procedure and recorded by nursing. Follow Up/Discharge Follow up plans and appointments were discussed with patient. Post procedure instruction was given as documented in nursing documentation. Discharge criteria met and patient discharged from [facility]: Yes Post Procedure Pain Post Procedure Pain: 0/10 Patient tolerated procedure well Procedure Outcome: Successful Non US Guided Injections Procedure Description Patient was placed in the left lateral recumbent position Post Procedure Pain Post Procedure Pain: 0/10 Coding Conscious Sedation used for procedure: No CPT Codes: Inj,Bursa/Tendon w/US Large; Iliopsoas Bursa Injection w/US - ([id number] ~G) Additional Codes: Date of Service (90050) Visualization of the needle tip - Ultrasound images captured/stored: Yes ([id number]) Diagnoses: Right trochanteric bursitis
== END 2025-09-06 09:36 | disposition home or self-care (01) ==
LOC: PC 09:35
PROVIDERS: PCP Family Medicine; Visit Provider Preventive Medicine Occupational Medicine
DX: M25.551 Pain in right hip (principal)
CPT/HCPCS: 20611; 76942; J0665; J1010

== ENCOUNTER 2025-09-18 10:00 | Outpatient (CLI) | payer MEDICARE, SELFPAY ==
[2025-09-18 13:59] LABS: Hemoglobin A1C 6.2 % (<5.7)
[2025-09-18 14:01] LABS: Magnesium 1.6 mg/dL (1.6-2.6)
[2025-09-18 14:02] LABS: Cholesterol 150 mg/dL (<200); HDL Cholesterol 48 mg/dL (>or=40)
== END 2025-09-18 10:01 | disposition home or self-care (01) ==
LOC: LOS 10:01
PROVIDERS: PCP Family Medicine; Visit Provider Family Medicine
DX: E78.5 Hyperlipidemia, unspecified (principal); Z13.220 Encounter for screening for lipoid disorders; E83.42 Hypomagnesemia; R73.9 Hyperglycemia, unspecified
CPT/HCPCS: 36415; 80061; 83036; 83735